=== PATIENT | male | born 1935 | race Caucasian/White ===

== ENCOUNTER 2017-02-09 12:54 | Inpatient (IN) | payer MEDICARE, OTHER ==
[2017-02-09 14:17] LABS: BASO # 0.2 K/uL (0.0-0.2); BASO % 0.3 % (0.0-2.0); EOS # 0.2 K/uL (0.0-0.7); EOS % 0.2 % (0.0-4.0); HEMATOCRIT 18.4 % (35.0-51.0); LYMPH % 7.7 % (20.0-40.0); MEAN CELL VOLUME 101.7 fL (80.0-94.0); MEAN CORPUSCULAR HGB CONC 31.5 g/dL (33.0-37.0); MEAN PLATELET VOLUME 10.9 fL (7.2-11.7); MONO # 20.1 K/uL (0.0-0.8); MONO % 30.7 % (0.0-10.0); NRBC % 0.3 % (0.0-2.0); RED CELL DISTRIBUTION WIDTH 18.2 % (11.5-14.5)
[2017-02-09 14:30] LABS: PLATELET COUNT 42 K/uL (130-400); WHITE BLOOD COUNT 65.4 K/uL (4.8-10.8)
[2017-02-09 14:32] LABS: POTASSIUM 4.6 mmol/L (3.6-5.2)
--- NOTE | 2017-02-09 14:34 | C.PDOC ---
History Of Present Illness 82 y/o male presents to ED sent by PMD for evaluation of severe Anemia and Renal failure. As per family patient was seen at PMD office on Thursday with complaints of weakness. As per family weakness has been intermittent for 1 month but worsen while on their vacation to [place]. Patient also reports new onset SOB worse when walking and no bowel movement for 1 day. Patient denies chest pain, fever, chills, n/v/d, abdominal pain, loss of appetite or any other complaints at this time. Time Seen by Provider: 02/09/17 13:35 Chief Complaint (Nursing): Weakness/Neurological Deficit History Per: Patient, Family History/Exam Limitations: language barrier Onset/Duration Of Symptoms: Days Current Symptoms Are (Timing): Still Present Past Medical History Reviewed: Historical Data, Nursing Documentation, Vital Signs Vital Signs: Last Vital Signs Temp 98.1 F 02/09/17 13:06 Pulse 79 02/09/17 13:06 Resp 20 02/09/17 14:00 BP 134/68 02/09/17 13:06 Pulse Ox 100 02/09/17 15:24 - Medical History PMH: HTN Family History: States: No Known Family Hx - Social History Hx Alcohol Use: No Hx Substance Use: No - Immunization History Hx Influenza Vaccination: Yes Hx Pneumococcal Vaccination: No Review Of Systems Except As Marked, All Systems Reviewed And Found Negative. Constitutional: Negative for: Fever, Chills Cardiovascular: Negative for: Chest Pain Respiratory: Positive for: Shortness of Breath Gastrointestinal: Negative for: Nausea, Vomiting, Abdominal Pain, Diarrhea Neurological: Positive for: Weakness Physical Exam - Physical Exam Appears: No Acute Distress Skin: Warm, Pale Head: Atraumatic, Normacephalic Eye(s): bilateral: EOMI, Conjunctiva Pale Oral Mucosa: Moist Throat: Normal, No Erythema Gastrointestinal/Abdominal: Soft, No Tenderness, No Guarding, No Rebound Extremity: Normal ROM, Capillary Refill (<2 seconds) Neurological/Psych: Oriented x3, Normal Speech ED Course And Treatment - Laboratory Results Result Diagrams: 02/09/17 14:03 02/09/17 14:03 O2 Sat by Pulse Oximetry: 100 (RA) Pulse Ox Interpretation: Normal Disposition Discussed With : Layla Mosley Doctor Will See Patient In The: Hospital Counseled Patient/Family Regarding: Studies Performed - Disposition Disposition: HOSPITALIZED Disposition Time: 14:33 Condition: GUARDED Forms: [facility] (Djiboutian) - Clinical Impression Clinical Impression: Leukocytosis, Anemia - Scribe Statement The provider has reviewed the documentation as recorded by the Martha Davis All medical record entries made by the Simiibe were at my direction and personally dictated by me. I have reviewed the chart and agree that the record accurately reflects my personal performance of the history, physical exam, medical decision making, and the department course for this patient. I have also personally directed, reviewed, and agree with the discharge instructions and disposition. Decision To Admit - Pt Status Changed To: Hospital Disposition Of: Inpatient - Admit Certification Admit to Inpatient:: After my assessment, the patient will require hospitalization for at least two midnights. This is because of the severity of symptoms shown, intensity of services needed, and/or the medical risk in this patient being treated as an outpatient. - InPatient: Physician Admission Certification: I certify that this patient requires 2 or more midnights of care for the following reason:: patient with elevated WBC, - . Bed Request Type: Telemetry Patient Diagnosis: Leukocytosis, Anemia
[2017-02-09 14:35] LABS: ALB/GLOB RATIO 1.2 (1.0-2.1); BILIRUBIN,TOTAL 0.5 mg/dL (0.2-1.3); CALCIUM 8.9 mg/dl (8.6-10.4); TOTAL PROTEIN 7.4 g/dL (6.3-8.3)
--- NOTE | 2017-02-09 14:39 | RAD ---
HISTORY: SOB COMPARISON: None available. TECHNIQUE: Chest, one view. FINDINGS: LUNGS: No focal consolidation. Please note that chest x-ray has limited sensitivity for the detection of pulmonary masses. PLEURA: No significant pleural effusion identified. No definite pneumothorax . CARDIOVASCULAR: Cardiomegaly. Atherosclerotic calcifications. OSSEOUS STRUCTURES: Degenerative changes. VISUALIZED UPPER ABDOMEN: Unremarkable. OTHER FINDINGS: None. IMPRESSION: Cardiomegaly. Atherosclerotic calcifications.
[2017-02-09 15:44] LABS: EOSINOPHIL 2 % (0-4); METAMYELOCYTE 9 % (0-0); MYELOCYTE 5 % (0-0); NEUTROPHIL 24 % (50-75); REACTIVE LYMPHOCYTES 6 % (0-0); TOTAL CELLS COUNTED 100
[2017-02-09 15:45] LABS: PROMYELOCYTE 1 % (0-0)
[2017-02-09 15:47] LABS: SMUDGE CELLS PRESENT
--- NOTE | 2017-02-09 18:43 | CP.PCM.HP ---
History of Present Illness - History of Present Illness History of Present Illness: 82 years old male patient with past medical history of hypertension presented to the emergency department for symptomatic anemia, found to have leukocytosis and thrombocytopenia. as per his PMD. Patient's family states that patient showed to PMD at his office on Thursday with complaint of intermittent weakness since last 1 month that worsen recently. Complaint of new onset shortness of breath that increases with walking. No fever, nausea, vomiting No chest pain, abdominal pain, back pain. No shortness of breath, diaphoresis, palpitation Present on Admission - Present on Admission Any Indicators Present on Admission: No Past Patient History - Past Social History Smoking Status: Never Smoked - CARDIAC Hx Hypertension: Yes - PSYCHIATRIC Hx Substance Use: No - SURGICAL HISTORY Hx Surgeries: No - ANESTHESIA Hx Anesthesia: No Meds Allergies/Adverse Reactions: Allergies Allergy/AdvReac Type Severity Reaction Status Date / Time No Known Allergies Allergy Verified 02/28/17 10:08 Physical Exam - Constitutional Appears: Well - Head Exam Head Exam: ATRAUMATIC, NORMAL INSPECTION, NORMOCEPHALIC - Eye Exam Eye Exam: EOMI, Normal appearance, PERRL Pupil Exam: NORMAL ACCOMODATION, PERRL - ENT Exam ENT Exam: Mucous Membranes Moist, Normal Exam - Neck Exam Neck exam: Positive for: Normal Inspection - Respiratory Exam Respiratory Exam: Decreased Breath Sounds - Cardiovascular Exam Cardiovascular Exam: REGULAR RHYTHM, +S1, +S2 - GI/Abdominal Exam GI & Abdominal Exam: Diminished Bowel Sounds, Soft - Rectal Exam Rectal Exam: Deferred Results - Vital Signs Recent Vital Signs: Last Vital Signs Temp 97.8 F 02/09/17 15:53 Pulse 86 02/09/17 15:53 Resp 24 02/09/17 15:53 BP 156/59 H 02/09/17 15:53 Pulse Ox 100 02/09/17 15:53 - Labs Result Diagrams: 02/12/17 07:52 02/12/17 07:52 Labs: Laboratory Results - last 24 hr 02/09/17 02/09/17 15:11 17:13 Blood Type B POSITIVE B POSITIVE Blood Type Confirm B POSITIVE Antibody Screen Negative Negative Assessment & Plan (1) AML (acute myeloblastic leukemia) Status: Acute (2) Anemia Status: Acute (3) Leukocytosis Status: Acute (4) Thrombocytopenia Status: Acute - Assessment and Plan (Free Text) Plan: Charts labs and vitals reviewed Iron studies Rule out bone marrow pathology Dr Garcia Avmeghannox Toprol-XL Dyazide Zetia Hemato-oncologist consult Follow-up with labs
--- NOTE | 2017-02-09 21:57 | CP.PCM.CON ---
History of Present Illness - History of Present Illness History of Present Illness: 82 year old male with a history of HTN, admitted with symptomatic anemia, found to have leukocytosis and thrombocytopenia. The patient reports to progressive fatigue, dyspnea with exertion which prompted blood work to be done by his PMD and recommendation to be sent to the ER. In the ER he was found to have a WBC of 65,000 with predominant monocytosis and some immature cells noted on his smear. Hgb was 5.8 and plt was 42,000. He is currently s/p 2U PRBC and feeling better. Past medical history: HTN Past surgical history: None Family history: Grandson had Nava sarcoma Social history: Denies tobacco, alcohol, and illicit drug use. Allergies: NKA Review of systems: All remaining review of systems including HEENT, cardiovascular, respiratory, gastrointestinal, genitourinary, musculoskeletal, dermatologic, neurologic, and psychiatric are negative unless mentioned in the HPI. Past Patient History - Past Social History Smoking Status: Never Smoked - CARDIAC Hx Hypertension: Yes - MUSCULOSKELETAL/RHEUMATOLOGICAL Hx Falls: No - PSYCHIATRIC Hx Substance Use: No - SURGICAL HISTORY Hx Surgeries: No - ANESTHESIA Hx Anesthesia: No Meds Allergies/Adverse Reactions: Allergies Allergy/AdvReac Type Severity Reaction Status Date / Time No Known Allergies Allergy Verified 02/09/17 13:05 - Medications Medications: Current Medications Ezetimibe (Zetia) 10 mg PO DAILY [facility] Enoxaparin Sodium (Lovenox) 40 mg SC DAILY [facility] Moxifloxacin HCl (Avelox Iv 400mg/250ml Ns) 400 mg in 250 mls @ 167 mls/hr IVPB Q24H [facility] Metoprolol Succinate (Toprol Xl) 25 mg PO DAILY [facility] Pantoprazole Sodium (Protonix Ec Tab) 40 mg PO DAILY [facility] Triamterene/HCTZ (Dyazide 25 Mg-37.5 Mg) 1 cap PO DAILY [facility] Physical Exam - Head Exam Head Exam: ATRAUMATIC - Eye Exam Eye Exam: Normal appearance - ENT Exam ENT Exam: Mucous Membranes Dry - Respiratory Exam Respiratory Exam: NORMAL BREATHING PATTERN - Cardiovascular Exam Cardiovascular Exam: +S1, +S2 - GI/Abdominal Exam GI & Abdominal Exam: Normal Bowel Sounds - Extremities Exam Extremities exam: Positive for: normal inspection - Neurological Exam Neurological exam: Oriented x3 - Psychiatric Exam Psychiatric exam: Normal Affect, Normal Mood - Skin Skin Exam: Warm Results - Vital Signs Recent Vital Signs: Last Vital Signs Temp 98.2 F 02/09/17 20:11 Pulse 77 02/09/17 20:11 Resp 24 02/09/17 20:11 BP 126/60 02/09/17 20:11 Pulse Ox 100 02/09/17 20:11 - Labs Result Diagrams: 02/10/17 10:03 02/10/17 10:03 Labs: Laboratory Results - last 24 hr 02/09/17 02/09/17 15:11 17:13 Blood Type B POSITIVE B POSITIVE Blood Type Confirm B POSITIVE Antibody Screen Negative Negative Assessment & Plan (1) Anemia Assessment and Plan: for 2U PRBC will check ferritin, retic count, b12, folate, FOBT Status: Acute (2) Leukocytosis Assessment and Plan: concern for leukemia will perform bone marrow biopsy in AM Status: Acute (3) Thrombocytopenia Assessment and Plan: rule out bone marrow pathology no current transfusion indication Thank you for this interesting consult. Status: Acute
[2017-02-09] MEDS: Moxifloxacin IV 400mg/250ml NS 400 MG/250 ML BAG IVPB SCH (22:57)
[2017-02-10 00:38] VITALS: RESP 20
[2017-02-10] MEDS: Metoprolol Succinate 25 mg XL Tab PO SCH (09:26)
[2017-02-10] MEDS: hydroCHLOROthiazide-Triamterene 25 mg-37.5 mg Cap UD PO SCH (09:26)
[2017-02-10] MEDS: Pantoprazole 40 mg EC Tab PO SCH (09:26)
[2017-02-10] MEDS ORDERED: Enoxaparin 40 mg Syringe SC SCH (10:00)
[2017-02-10 10:13] LABS: BASO # 0.1 K/uL (0.0-0.2); BASO % 0.1 % (0.0-2.0); EOS # 0.1 K/uL (0.0-0.7); EOS % 0.2 % (0.0-4.0); HEMATOCRIT 26.8 % (35.0-51.0); LYMPH % 7.5 % (20.0-40.0); MEAN CORPUSCULAR HEMOGLOBIN 30.6 pg (27.0-31.0); MEAN CORPUSCULAR HGB CONC 31.9 g/dL (33.0-37.0); MEAN PLATELET VOLUME 9.7 fL (7.2-11.7); MONO # 12.2 K/uL (0.0-0.8); MONO % 22.8 % (0.0-10.0); NRBC % 0.4 % (0.0-2.0); PLATELET COUNT 35 K/uL (130-400)
[2017-02-10 10:14] LABS: POTASSIUM 3.9 mmol/L (3.6-5.2)
[2017-02-10 10:16] LABS: BILIRUBIN,TOTAL 0.7 mg/dL (0.2-1.3)
[2017-02-10 10:17] LABS: ALB/GLOB RATIO 1.1 (1.0-2.1); CALCIUM 8.6 mg/dl (8.6-10.4); TOTAL PROTEIN 7.3 g/dL (6.3-8.3)
[2017-02-10 10:19] LABS: MEAN CELL VOLUME 96.1 fL (80.0-94.0); WHITE BLOOD COUNT 53.6 K/uL (4.8-10.8)
[2017-02-10] MEDS ORDERED: Lidocaine 2% Inj (20ml) IJ ONE (10:40)
[2017-02-10 10:58] LABS: METAMYELOCYTE 4 % (0-0); MYELOCYTE 5 % (0-0); NEUTROPHIL 29 % (50-75); REACTIVE LYMPHOCYTES 20 % (0-0); TOTAL CELLS COUNTED 100
[2017-02-10 11:03] LABS: SPHEROCYTES SLIGHT
--- NOTE | 2017-02-10 12:37 | CP.PCM.PN ---
Subjective - Date & Time of Evaluation Date of Evaluation: 02/10/17 Time of Evaluation: 12:00 - Subjective Subjective: Bone marrow aspiration and biopsy procedure Indication: Luekocytosis, anemia, thrombocytopenia; Rule out Leukemia - Time-out was called to confirm: patients name and date of , procedure, side and site of biopsy, safety procedures followed. - Performed by: katrina and Landon Pang D.O. - Informed consent: signed by patient. - Aspiration and biopsy site: [right] superior posterior iliac crest. - Patient position: [left lateral decubitus] - Preparation and technique: sterile preparation of site with Betadyne, Chloraprep, draped to expose aspirate/biopsy area, local anesthesia with 2% lidocaine (approximately 10ml), frequent pressure application on incision to maintain hemostasis. - Tissue obtained: bone marrow aspirate and biopsy were successfully obtained in sterile manner. - Toleration of procedure and any complications: slight localized bleeding (<1ml ). Patient tolerated procedure well with minimal pain. Objective - Vital Signs/Intake and Output Vital Signs (last 24 hours): Temp Pulse Resp BP Pulse Ox 98.4 F 70 20 134/76 98 02/10/17 07:43 02/10/17 07:43 02/10/17 07:43 02/10/17 07:43 02/10/17 07:43 Intake and Output: 02/10/17 02/10/17 06:59 18:59 Intake Total 1625 Output Total 200 Balance 1425 - Medications Medications: Current Medications Ezetimibe (Zetia) 10 mg PO DAILY [facility] Last Admin: 02/10/17 09:26 Dose: 10 mg Moxifloxacin HCl (Avelox Iv 400mg/250ml Ns) 400 mg in 250 mls @ 167 mls/hr IVPB Q24H [facility] Last Admin: 02/09/17 22:57 Dose: 167 mls/hr Metoprolol Succinate (Toprol Xl) 25 mg PO DAILY [facility] Last Admin: 02/10/17 09:26 Dose: 25 mg Pantoprazole Sodium (Protonix Ec Tab) 40 mg PO DAILY [facility] Last Admin: 02/10/17 09:26 Dose: 40 mg Triamterene/HCTZ (Dyazide 25 Mg-37.5 Mg) 1 cap PO DAILY [facility] Last Admin: 02/10/17 09:26 Dose: 1 cap - Labs Labs: 02/10/17 10:03 02/10/17 10:03 - Head Exam Head Exam: ATRAUMATIC - Eye Exam Eye Exam: Normal appearance - ENT Exam ENT Exam: Mucous Membranes Dry - Respiratory Exam Respiratory Exam: NORMAL BREATHING PATTERN - Cardiovascular Exam Cardiovascular Exam: +S1, +S2 - GI/Abdominal Exam GI & Abdominal Exam: Normal Bowel Sounds - Extremities Exam Extremities Exam: Pedal Edema Assessment and Plan (1) Leukocytosis Status: Acute (2) Thrombocytopenia Status: Acute (3) Anemia Status: Acute
--- NOTE | 2017-02-10 16:53 | CP.PCM.PN ---
Subjective - Date & Time of Evaluation Date of Evaluation: 02/10/17 Time of Evaluation: 09:40 - Subjective Subjective: clinically same Objective - Vital Signs/Intake and Output Vital Signs (last 24 hours): Temp Pulse Resp BP Pulse Ox 98.4 F 70 20 134/76 98 02/10/17 07:43 02/10/17 07:43 02/10/17 07:43 02/10/17 07:43 02/10/17 07:43 Intake and Output: 02/10/17 02/10/17 06:59 18:59 Intake Total 1625 300 Output Total 200 Balance 1425 300 - Medications Medications: Current Medications Ezetimibe (Zetia) 10 mg PO DAILY [facility] Last Admin: 02/10/17 09:26 Dose: 10 mg Moxifloxacin HCl (Avelox Iv 400mg/250ml Ns) 400 mg in 250 mls @ 167 mls/hr IVPB Q24H [facility] Last Admin: 02/09/17 22:57 Dose: 167 mls/hr Metoprolol Succinate (Toprol Xl) 25 mg PO DAILY [facility] Last Admin: 02/10/17 09:26 Dose: 25 mg Pantoprazole Sodium (Protonix Ec Tab) 40 mg PO DAILY [facility] Last Admin: 02/10/17 09:26 Dose: 40 mg Triamterene/HCTZ (Dyazide 25 Mg-37.5 Mg) 1 cap PO DAILY [facility] Last Admin: 02/10/17 09:26 Dose: 1 cap - Labs Labs: 02/10/17 10:03 02/10/17 10:03 - Constitutional Appears: Well - Head Exam Head Exam: ATRAUMATIC, NORMAL INSPECTION, NORMOCEPHALIC - Eye Exam Eye Exam: EOMI, Normal appearance, PERRL Pupil Exam: NORMAL ACCOMODATION, PERRL - ENT Exam ENT Exam: Mucous Membranes Moist, Normal Exam - Neck Exam Neck Exam: Full ROM, Normal Inspection. absent: Lymphadenopathy - Respiratory Exam Respiratory Exam: Decreased Breath Sounds - Cardiovascular Exam Cardiovascular Exam: REGULAR RHYTHM, +S1, +S2 - GI/Abdominal Exam GI & Abdominal Exam: Soft, Diminished Bowel Sounds - Rectal Exam Rectal Exam: Deferred Assessment and Plan (1) AML (acute myeloblastic leukemia) Status: Acute (2) Anemia Status: Acute (3) Leukocytosis Status: Acute (4) Thrombocytopenia Status: Acute - Assessment and Plan (Free Text) Plan: Patient with a very high WBC almost to 60,000 and W report hemoglobin which was 5.8 now has gone up to 8.[address] Weber who is going to do the bone marrow biopsy Family bedside discussed about the does and don'ts of the diagnoses family made aware
[2017-02-10] MEDS: Moxifloxacin IV 400mg/250ml NS 400 MG/250 ML BAG IVPB SCH (21:33)
[2017-02-11 07:13] LABS: BASO # 0.1 K/uL (0.0-0.2); BASO % 0.2 % (0.0-2.0); EOS # 0.1 K/uL (0.0-0.7); EOS % 0.2 % (0.0-4.0); LYMPH # 4.3 K/uL (1.0-4.3); LYMPH % 7.5 % (20.0-40.0); MEAN CELL VOLUME 94.7 fL (80.0-94.0); MEAN CORPUSCULAR HEMOGLOBIN 30.9 pg (27.0-31.0); MEAN CORPUSCULAR HGB CONC 32.6 g/dL (33.0-37.0); MEAN PLATELET VOLUME 9.7 fL (7.2-11.7); MONO # 16.9 K/uL (0.0-0.8); MONO % 29.4 % (0.0-10.0); NRBC % 0.2 % (0.0-2.0); PLATELET COUNT 38 K/uL (130-400); RED CELL DISTRIBUTION WIDTH 19.8 % (11.5-14.5)
[2017-02-11 07:33] LABS: WHITE BLOOD COUNT 57.3 K/uL (4.8-10.8)
[2017-02-11 07:53] LABS: CHLORIDE 102 mmol/L (98-107)
[2017-02-11 07:54] LABS: SODIUM 141 mmol/L (132-148)
[2017-02-11 07:56] LABS: ALB/GLOB RATIO 1.1 (1.0-2.1); ALKALINE PHOSPHATASE 56 U/L (38-126); ALT/SGPT 24 U/L (21-72); AST/SGOT 26 U/L (17-59); BILIRUBIN,TOTAL 0.6 mg/dL (0.2-1.3); BLOOD UREA NITROGEN 37 mg/dL (9-20); CARBON DIOXIDE 23 mmol/L (22-30); GFR AFRICAN-AMERICAN 35; TOTAL PROTEIN 6.5 g/dL (6.3-8.3)
[2017-02-11 07:57] LABS: CALCIUM 8.2 mg/dl (8.6-10.4); GLUCOSE,RANDOM 88 mg/dL (75-110)
[2017-02-11 08:53] LABS: BLASTS 11 % (0-0); METAMYELOCYTE 5 % (0-0); MYELOCYTE 4 % (0-0); NEUTROPHIL 24 % (50-75); NUCLEATED RED BLOOD CELL 1 % (0-0); PROMYELOCYTE 5 % (0-0); REACTIVE LYMPHOCYTES 1 % (0-0); TOTAL CELLS COUNTED 100
[2017-02-11 10:57] LABS: RETIC% 0.7 % (0.5-1.5)
--- NOTE | 2017-02-11 11:03 | CP.PCM.PN ---
Subjective - Date & Time of Evaluation Date of Evaluation: 02/11/17 Time of Evaluation: 09:20 - Subjective Subjective: clinically same Objective - Vital Signs/Intake and Output Vital Signs (last 24 hours): Temp Pulse Resp BP Pulse Ox 98.0 F 71 20 115/63 97 02/11/17 08:00 02/11/17 08:00 02/11/17 08:00 02/11/17 08:00 02/11/17 08:00 Intake and Output: 02/11/17 02/11/17 06:59 18:59 Intake Total 590 Balance 590 - Medications Medications: Current Medications Ezetimibe (Zetia) 10 mg PO DAILY [facility] Last Admin: 02/10/17 09:26 Dose: 10 mg Moxifloxacin HCl (Avelox Iv 400mg/250ml Ns) 400 mg in 250 mls @ 167 mls/hr IVPB Q24H [facility] Last Admin: 02/10/17 21:33 Dose: 167 mls/hr Metoprolol Succinate (Toprol Xl) 25 mg PO DAILY [facility] Last Admin: 02/10/17 09:26 Dose: 25 mg Pantoprazole Sodium (Protonix Ec Tab) 40 mg PO DAILY [facility] Last Admin: 02/10/17 09:26 Dose: 40 mg Triamterene/HCTZ (Dyazide 25 Mg-37.5 Mg) 1 cap PO DAILY [facility] Last Admin: 02/10/17 09:26 Dose: 1 cap - Labs Labs: 02/11/17 06:59 02/11/17 06:59 - Constitutional Appears: Well - Head Exam Head Exam: ATRAUMATIC, NORMAL INSPECTION, NORMOCEPHALIC - Eye Exam Eye Exam: EOMI, Normal appearance, PERRL Pupil Exam: NORMAL ACCOMODATION, PERRL - ENT Exam ENT Exam: Mucous Membranes Moist, Normal Exam - Neck Exam Neck Exam: Full ROM, Normal Inspection. absent: Lymphadenopathy - Respiratory Exam Respiratory Exam: Decreased Breath Sounds - Cardiovascular Exam Cardiovascular Exam: REGULAR RHYTHM, +S1, +S2 - GI/Abdominal Exam GI & Abdominal Exam: Soft, Diminished Bowel Sounds - Rectal Exam Rectal Exam: Deferred Assessment and Plan (1) Anemia Status: Acute (2) Leukocytosis Status: Acute (3) Thrombocytopenia Status: Acute - Assessment and Plan (Free Text) Plan: Case seen and discussed with the staff patient had bone marrow biopsy yesterday reports pending status post units of transfusion hemoglobin went up to 8.6 WBC today is 57 continue following up with the bone marrow report bone marrow is still pending follow-up with the consultations
[2017-02-11] MEDS: Metoprolol Succinate 25 mg XL Tab PO SCH (11:04)
[2017-02-11] MEDS: hydroCHLOROthiazide-Triamterene 25 mg-37.5 mg Cap UD PO SCH (11:04)
[2017-02-11] MEDS: Pantoprazole 40 mg EC Tab PO SCH (11:05)
--- NOTE | 2017-02-11 11:47 | CP.PCM.PN ---
<Landon Pang - Last Filed: 02/11/17 11:42> Subjective - Date & Time of Evaluation Date of Evaluation: 02/11/17 Time of Evaluation: 10:00 - Subjective Subjective: PGY3 on heme/onc Dr. Garcia service: Pt seen and examined at bedside this morning. S/P bone marrow biopsy POD#1 and 2U pRBC transfusion. No complaints at the moment. Objective - Vital Signs/Intake and Output Vital Signs (last 24 hours): Temp Pulse Resp BP Pulse Ox 98.0 F 71 20 115/63 97 02/11/17 08:00 02/11/17 08:00 02/11/17 08:00 02/11/17 08:00 02/11/17 08:00 Intake and Output: 02/11/17 02/11/17 06:59 18:59 Intake Total 590 Balance 590 - Medications Medications: Current Medications Ezetimibe (Zetia) 10 mg PO DAILY [facility] Last Admin: 02/11/17 11:19 Dose: 10 mg Moxifloxacin HCl (Avelox Iv 400mg/250ml Ns) 400 mg in 250 mls @ 167 mls/hr IVPB Q24H [facility] Last Admin: 02/10/17 21:33 Dose: 167 mls/hr Metoprolol Succinate (Toprol Xl) 25 mg PO DAILY [facility] Last Admin: 02/11/17 11:04 Dose: 25 mg Pantoprazole Sodium (Protonix Ec Tab) 40 mg PO DAILY [facility] Last Admin: 02/11/17 11:05 Dose: 40 mg Triamterene/HCTZ (Dyazide 25 Mg-37.5 Mg) 1 cap PO DAILY [facility] Last Admin: 02/11/17 11:04 Dose: 1 cap - Labs Labs: 02/11/17 06:59 02/11/17 06:59 - Constitutional Appears: Non-toxic, No Acute Distress - Head Exam Head Exam: ATRAUMATIC, NORMAL INSPECTION, NORMOCEPHALIC - ENT Exam ENT Exam: Mucous Membranes Moist - Respiratory Exam Respiratory Exam: Clear to Ausculation Bilateral, NORMAL BREATHING PATTERN - Cardiovascular Exam Cardiovascular Exam: REGULAR RHYTHM, +S1, +S2. absent: Gallop, Rubs - GI/Abdominal Exam GI & Abdominal Exam: Soft, Normal Bowel Sounds - Neurological Exam Neurological Exam: Alert, Awake, Oriented x3 - Psychiatric Exam Psychiatric exam: Normal Mood Assessment and Plan - Assessment and Plan (Free Text) Assessment: (1) Anemia Assessment and Plan: S/P 2U PRBC transfusion Ret index 0.28 Pending other anemia workup Status: Acute (2) Leukocytosis Assessment and Plan: S/P bone marrow biopsy F/U results Status: Acute (3) Thrombocytopenia Assessment and Plan: rule out bone marrow pathology no current transfusion indication Status: Acute <Zeferino Garcia - Last Filed: 02/12/17 17:10> Objective - Vital Signs/Intake and Output Vital Signs (last 24 hours): Temp Pulse Resp BP Pulse Ox 97.9 F 72 20 116/68 98 02/12/17 16:00 02/12/17 16:00 02/12/17 16:00 02/12/17 16:00 02/12/17 16:00 Intake and Output: 02/12/17 02/12/17 06:59 18:59 Intake Total 490 Balance 490 - Medications Medications: Current Medications Ezetimibe (Zetia) 10 mg PO DAILY [facility] Last Admin: 02/12/17 09:34 Dose: 10 mg Moxifloxacin HCl (Avelox Iv 400mg/250ml Ns) 400 mg in 250 mls @ 167 mls/hr IVPB Q24H [facility] Last Admin: 02/11/17 21:22 Dose: 167 mls/hr Metoprolol Succinate (Toprol Xl) 25 mg PO DAILY [facility] Last Admin: 02/12/17 09:34 Dose: 25 mg Pantoprazole Sodium (Protonix Ec Tab) 40 mg PO DAILY [facility] Last Admin: 02/12/17 09:34 Dose: 40 mg Triamterene/HCTZ (Dyazide 25 Mg-37.5 Mg) 1 cap PO DAILY [facility] Last Admin: 02/12/17 09:34 Dose: 1 cap - Labs Labs: 02/12/17 07:52 02/12/17 07:52 Assessment and Plan (1) Anemia Status: Acute (2) Leukocytosis Status: Acute (3) Thrombocytopenia Status: Acute - Assessment and Plan (Free Text) Assessment: Pt seen and examined, agree with residents note. S/p bone marrow biopsy; awaiting path report. Concern for acute leukemia.
[2017-02-11 12:05] LABS: FOLATE > 20.0 ng/mL
[2017-02-11] MEDS: Moxifloxacin IV 400mg/250ml NS 400 MG/250 ML BAG IVPB SCH (21:22)
[2017-02-12 08:03] LABS: BASO # 0.1 K/uL (0.0-0.2); BASO % 0.1 % (0.0-2.0); EOS # 0.1 K/uL (0.0-0.7); EOS % 0.1 % (0.0-4.0); HEMATOCRIT 27.9 % (35.0-51.0); LYMPH # 5.9 K/uL (1.0-4.3); LYMPH % 8.3 % (20.0-40.0); MEAN CORPUSCULAR HEMOGLOBIN 30.8 pg (27.0-31.0); MEAN CORPUSCULAR HGB CONC 31.9 g/dL (33.0-37.0); MEAN PLATELET VOLUME 9.9 fL (7.2-11.7); MONO % 29.3 % (0.0-10.0); NRBC % 0.1 % (0.0-2.0); PLATELET COUNT 40 K/uL (130-400); RED CELL DISTRIBUTION WIDTH 20.2 % (11.5-14.5)
[2017-02-12 08:06] LABS: POTASSIUM 3.6 mmol/L (3.6-5.2)
[2017-02-12 08:09] LABS: ALB/GLOB RATIO 1.1 (1.0-2.1); BILIRUBIN,TOTAL 0.6 mg/dL (0.2-1.3); CALCIUM 8.4 mg/dl (8.6-10.4); MEAN CELL VOLUME 96.7 fL (80.0-94.0); TOTAL PROTEIN 7.5 g/dL (6.3-8.3); WHITE BLOOD COUNT 71.7 K/uL (4.8-10.8)
[2017-02-12] MEDS: Pantoprazole 40 mg EC Tab PO SCH (09:34)
[2017-02-12] MEDS: Metoprolol Succinate 25 mg XL Tab PO SCH (09:34)
[2017-02-12] MEDS: hydroCHLOROthiazide-Triamterene 25 mg-37.5 mg Cap UD PO SCH (09:34)
[2017-02-12 09:54] LABS: BLASTS 11 % (0-0); METAMYELOCYTE 4 % (0-0); MYELOCYTE 5 % (0-0); NEUTROPHIL 27 % (50-75); PROMYELOCYTE 3 % (0-0); REACTIVE LYMPHOCYTES 1 % (0-0); TOTAL CELLS COUNTED 100
--- NOTE | 2017-02-12 15:18 | CP.PCM.PN ---
Subjective - Date & Time of Evaluation Date of Evaluation: 02/12/17 Time of Evaluation: 09:00 - Subjective Subjective: clinically same Objective - Vital Signs/Intake and Output Vital Signs (last 24 hours): Temp Pulse Resp BP Pulse Ox 98.2 F 71 20 127/74 99 02/12/17 08:17 02/12/17 08:17 02/12/17 08:17 02/12/17 08:17 02/12/17 08:17 Intake and Output: 02/12/17 02/12/17 06:59 18:59 Intake Total 490 Balance 490 - Medications Medications: Current Medications Ezetimibe (Zetia) 10 mg PO DAILY [facility] Last Admin: 02/12/17 09:34 Dose: 10 mg Moxifloxacin HCl (Avelox Iv 400mg/250ml Ns) 400 mg in 250 mls @ 167 mls/hr IVPB Q24H [facility] Last Admin: 02/11/17 21:22 Dose: 167 mls/hr Metoprolol Succinate (Toprol Xl) 25 mg PO DAILY [facility] Last Admin: 02/12/17 09:34 Dose: 25 mg Pantoprazole Sodium (Protonix Ec Tab) 40 mg PO DAILY [facility] Last Admin: 02/12/17 09:34 Dose: 40 mg Triamterene/HCTZ (Dyazide 25 Mg-37.5 Mg) 1 cap PO DAILY [facility] Last Admin: 02/12/17 09:34 Dose: 1 cap - Labs Labs: 02/12/17 07:52 02/12/17 07:52 - Constitutional Appears: Well - Head Exam Head Exam: ATRAUMATIC, NORMAL INSPECTION, NORMOCEPHALIC - Eye Exam Eye Exam: EOMI, Normal appearance, PERRL Pupil Exam: NORMAL ACCOMODATION, PERRL - ENT Exam ENT Exam: Mucous Membranes Moist, Normal Exam - Neck Exam Neck Exam: Full ROM, Normal Inspection. absent: Lymphadenopathy - Respiratory Exam Respiratory Exam: Decreased Breath Sounds - Cardiovascular Exam Cardiovascular Exam: REGULAR RHYTHM, +S1, +S2 - GI/Abdominal Exam GI & Abdominal Exam: Soft, Diminished Bowel Sounds - Rectal Exam Rectal Exam: Deferred Assessment and Plan (1) Anemia Status: Acute (2) Leukocytosis Status: Acute (3) Thrombocytopenia Status: Acute - Assessment and Plan (Free Text) Plan: Patient clinically stable No acute event overnight Labs and meds noted Discharge today Continue home meds Follow-up in office as outpatient in 2 days Follow-up with Dr. Garcia Return to ED if symptom recurs
[2017-02-12 16:18] VITALS: BP 116/68; PULSE 72; TEMP 97.9; O2SAT 98
--- NOTE | 2017-02-12 17:12 | CP.PCM.PN ---
Subjective - Date & Time of Evaluation Date of Evaluation: 02/12/17 Time of Evaluation: 17:08 - Subjective Subjective: PT SEEN AND EXAMINED BY DR Tito FAUST TODAY. PT DENIES ANY CP, SOB, RESP EASY AND UNLABORED. NAD Objective - Vital Signs/Intake and Output Vital Signs (last 24 hours): Temp Pulse Resp BP Pulse Ox 97.9 F 72 20 116/68 98 02/12/17 16:00 02/12/17 16:00 02/12/17 16:00 02/12/17 16:00 02/12/17 16:00 Intake and Output: 02/12/17 02/12/17 06:59 18:59 Intake Total 490 Balance 490 - Medications Medications: Current Medications Ezetimibe (Zetia) 10 mg PO DAILY [facility] Last Admin: 02/12/17 09:34 Dose: 10 mg Moxifloxacin HCl (Avelox Iv 400mg/250ml Ns) 400 mg in 250 mls @ 167 mls/hr IVPB Q24H [facility] Last Admin: 02/11/17 21:22 Dose: 167 mls/hr Metoprolol Succinate (Toprol Xl) 25 mg PO DAILY [facility] Last Admin: 02/12/17 09:34 Dose: 25 mg Pantoprazole Sodium (Protonix Ec Tab) 40 mg PO DAILY [facility] Last Admin: 02/12/17 09:34 Dose: 40 mg Triamterene/HCTZ (Dyazide 25 Mg-37.5 Mg) 1 cap PO DAILY [facility] Last Admin: 02/12/17 09:34 Dose: 1 cap - Labs Labs: 02/12/17 07:52 02/12/17 07:52 Assessment and Plan - Assessment and Plan (Free Text) Plan: 82 Y/O MALE ADMITTED FOR GENERALIZED WEAKNESS, ANEMIA, THROMBOCYTOPENIA, 2 UNITS PRBC, BONE MARROW BIOPSY BY DR EASON, AWAITING FOR FINAL RESULTS FOR BONE MARROW BIOSPY, PT CLEARED FOR D/C PER DR Tito FAUST AND DR EASON, FOLLOW UP WITH DR EASON, DR FAUST, SECOND OPINION AT [facility], RETURN TO ED IF ANY WORSENING S /S, PT AND FAMILY AGREE W/POC, VERBALIZE UNDERSTANDING.
--- NOTE | 2017-02-12 18:06 | CP.PCM.PN ---
Subjective - Date & Time of Evaluation Date of Evaluation: 02/12/17 Time of Evaluation: 15:00 - Subjective Subjective: No complaints. 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 Objective - Vital Signs/Intake and Output Vital Signs (last 24 hours): Temp Pulse Resp BP Pulse Ox 97.9 F 72 20 116/68 98 02/12/17 16:00 02/12/17 16:00 02/12/17 16:00 02/12/17 16:00 02/12/17 16:00 Intake and Output: 02/12/17 02/12/17 06:59 18:59 Intake Total 490 Balance 490 - Medications Medications: Current Medications Ezetimibe (Zetia) 10 mg PO DAILY [facility] Last Admin: 02/12/17 09:34 Dose: 10 mg Moxifloxacin HCl (Avelox Iv 400mg/250ml Ns) 400 mg in 250 mls @ 167 mls/hr IVPB Q24H [facility] Last Admin: 02/11/17 21:22 Dose: 167 mls/hr Metoprolol Succinate (Toprol Xl) 25 mg PO DAILY [facility] Last Admin: 02/12/17 09:34 Dose: 25 mg Pantoprazole Sodium (Protonix Ec Tab) 40 mg PO DAILY [facility] Last Admin: 02/12/17 09:34 Dose: 40 mg Triamterene/HCTZ (Dyazide 25 Mg-37.5 Mg) 1 cap PO DAILY [facility] Last Admin: 02/12/17 09:34 Dose: 1 cap - Labs Labs: 02/12/17 07:52 02/12/17 07:52 - Head Exam Head Exam: ATRAUMATIC - Eye Exam Eye Exam: Normal appearance - ENT Exam ENT Exam: Mucous Membranes Dry - Respiratory Exam Respiratory Exam: NORMAL BREATHING PATTERN - Cardiovascular Exam Cardiovascular Exam: +S1, +S2 - GI/Abdominal Exam GI & Abdominal Exam: Normal Bowel Sounds - Extremities Exam Extremities Exam: Normal Inspection Assessment and Plan (1) Anemia Assessment & Plan: likely secondary to AML transfusion support Status: Acute (2) Leukocytosis Assessment & Plan: likely AML f/u offical path report as outpatient Status: Acute (3) Thrombocytopenia Assessment & Plan: likely secondary to AML no transfusion indication Status: Acute
== END 2017-02-12 18:17 | disposition home or self-care (01) | DRG 842 ==
LOC: C.ER 12:54 → C.9E 14:44 → C.3T 19:42
PROVIDERS: ADMIT Internal Medicine Nephrology; ATTEND Internal Medicine Nephrology
PROC: 30233N1 Transfusion of Nonautologous Red Blood Cells into Peripheral Vein, Percutaneous Approach (ICD-10-PCS; 2017-02-09)
PROC: 07DR3ZX Extraction of Iliac Bone Marrow, Percutaneous Approach, Diagnostic (ICD-10-PCS; principal; 2017-02-10)
DX: C92.Z0 Other myeloid leukemia not having achieved remission (principal); D69.6 Thrombocytopenia, unspecified; D64.9 Anemia, unspecified; I10 Essential (primary) hypertension

== ENCOUNTER 2017-02-28 09:58 | Observation (INO) | payer MEDICARE, OTHER ==
[2017-02-28 11:02] LABS: BASO # 0.2 K/uL (0.0-0.2); BASO % 0.2 % (0.0-2.0); EOS # 0.4 K/uL (0.0-0.7); EOS % 0.5 % (0.0-4.0); HEMATOCRIT 23.4 % (35.0-51.0); LYMPH # 6.4 K/uL (1.0-4.3); LYMPH % 8.4 % (20.0-40.0); MEAN CELL VOLUME 96.2 fL (80.0-94.0); MEAN CORPUSCULAR HEMOGLOBIN 29.3 pg (27.0-31.0); MEAN CORPUSCULAR HGB CONC 30.5 g/dL (33.0-37.0); MEAN PLATELET VOLUME 10.6 fL (7.2-11.7); MONO # 25.9 K/uL (0.0-0.8); MONO % 34.1 % (0.0-10.0); PLATELET COUNT 45 K/uL (130-400); RED CELL DISTRIBUTION WIDTH 20.2 % (11.5-14.5)
--- NOTE | 2017-02-28 11:04 | C.PDOC ---
History Of Present Illness 82 year old male with a history of anemia and leukemia presents to the ED with complaints of generalized weakness for approximately 3-4 days. Patient recently had a blood transfusion performed two and a half weeks ago. He was evaluated by PMD six days ago on Thursday and upon re-evaluation today had a hemoglobin of 7.8. Patient was referred to ED for further evaluation. He denies hematuria, melena, fever, nausea, vomiting, shortness of breath, or dizziness. Time Seen by Provider: 02/28/17 10:08 Chief Complaint (Nursing): Abnormal Labs History Per: Patient History/Exam Limitations: no limitations Onset/Duration Of Symptoms: Days (3-4 days ) Current Symptoms Are (Timing): Still Present Reports Recently: Treated By A Physician Recent travel outside of the [place]: No Additional History Per: Prior Records Past Medical History Reviewed: Historical Data, Nursing Documentation, Vital Signs Vital Signs: Last Vital Signs Temp 98.1 F 02/28/17 16:03 Pulse 87 02/28/17 16:03 Resp 18 02/28/17 16:03 BP 114/63 02/28/17 16:03 Pulse Ox 100 02/28/17 14:48 - Medical History PMH: Arthritis (L KNEE/L ANKLE/FOOT), HTN, Hypercholesterolemia - [facility] Procedures EXTRACTION OF ILIAC BONE MARROW, PERC APPROACH, DIAGN (02/09/17) TRANSFUSE NONAUT RED BLOOD CELLS IN PERIPH VEIN, PERC (02/09/17) Family History: States: Unknown Family Hx - Social History Hx Alcohol Use: No Hx Substance Use: No - Immunization History Hx Influenza Vaccination: Yes Hx Pneumococcal Vaccination: No Review Of Systems Constitutional: Positive for: Weakness. Negative for: Fever, Chills Cardiovascular: Negative for: Chest Pain, Palpitations Respiratory: Negative for: Cough, Shortness of Breath Gastrointestinal: Negative for: Nausea, Vomiting, Abdominal Pain, Diarrhea Neurological: Negative for: Dizziness Physical Exam - Physical Exam Appears: Non-toxic, No Acute Distress, Chronically Ill Skin: Warm, Dry, Pale Head: Atraumatic, Normacephalic Eye(s): bilateral: EOMI, Conjunctiva Pale Nose: Normal Oral Mucosa: Moist Neck: Normal ROM, Supple Chest: Symmetrical, No Deformity Cardiovascular: Rhythm Regular, No Murmur Respiratory: Normal Breath Sounds, No Rales, No Rhonchi, No Stridor, No Wheezing Gastrointestinal/Abdominal: Soft, No Tenderness, No Distention, No Guarding, No Rebound Extremity: No Pedal Edema, No Calf Tenderness, Capillary Refill (good capillary refill, less than two seconds ), No Deformity, No Swelling Neurological/Psych: Oriented x3, Normal Speech, Normal Cognition, Normal Motor, Normal Sensation ED Course And Treatment - Laboratory Results Result Diagrams: 02/28/17 10:45 02/28/17 10:45 O2 Sat by Pulse Oximetry: 97 (room air ) Progress Note: CAse discussed and pt admitted to Dr. Mosley. - Physician Consult Information Time Consulting Physician Contacted: 11:51 Physician Contacted: Zeferino Garcia Outcome Of Conversation: Dr. Garcia did not answer call. Disposition - Disposition Disposition: HOSPITALIZED Disposition Time: 10:00 Condition: STABLE - Clinical Impression Clinical Impression: Leukocytosis, Anemia - Scribe Statement The provider has reviewed the documentation as recorded by the Scribe Erica Becker All medical record entries made by the Simiibe were at my direction and personally dictated by me. I have reviewed the chart and agree that the record accurately reflects my personal performance of the history, physical exam, medical decision making, and the department course for this patient. I have also personally directed, reviewed, and agree with the discharge instructions and disposition.
[2017-02-28 11:05] LABS: POTASSIUM 4.6 mmol/L (3.6-5.2)
[2017-02-28 11:08] LABS: ALB/GLOB RATIO 1.2 (1.0-2.1); BILIRUBIN,TOTAL 0.7 mg/dL (0.2-1.3); TOTAL PROTEIN 7.7 g/dL (6.3-8.3)
[2017-02-28 11:09] LABS: CALCIUM 9.3 mg/dl (8.6-10.4)
[2017-02-28 11:38] LABS: BASOPHIL 1 % (0-2); BLASTS 4 % (0-0); METAMYELOCYTE 2 % (0-0); MYELOCYTE 5 % (0-0); TOTAL CELLS COUNTED 100
[2017-02-28 11:41] LABS: NEUTROPHIL 32 % (50-75); PROMYELOCYTE 3 % (0-0); SPHEROCYTES SLIGHT
--- NOTE | 2017-02-28 14:41 | CP.PCM.HP ---
Past Patient History - Past Medical History & Family History Past Medical History?: Yes - Past Social History Smoking Status: Never Smoked - CARDIAC Hx Hypercholesterolemia: Yes Hx Hypertension: Yes - PULMONARY Hx Respiratory Disorders: No - NEUROLOGICAL Hx Neurological Disorder: No - HEENT Hx HEENT Problems: No - RENAL Hx Chronic Kidney Disease: No - ENDOCRINE/METABOLIC Hx Endocrine Disorders: No - HEMATOLOGICAL/ONCOLOGICAL Hx Blood Disorders: No Hx Leukemia: Yes - INTEGUMENTARY Hx Dermatological Problems: No - MUSCULOSKELETAL/RHEUMATOLOGICAL Hx Arthritis: Yes (L KNEE/L ANKLE/FOOT) - GASTROINTESTINAL Hx Gastrointestinal Disorders: No - GENITOURINARY/GYNECOLOGICAL Hx Genitourinary Disorders: No - PSYCHIATRIC Hx Substance Use: No - SURGICAL HISTORY Hx Surgeries: No - ANESTHESIA Hx Anesthesia: No Meds Allergies/Adverse Reactions: Allergies Allergy/AdvReac Type Severity Reaction Status Date / Time No Known Allergies Allergy Verified 02/28/17 10:08 Physical Exam - Constitutional Appears: Well - Head Exam Head Exam: ATRAUMATIC, NORMAL INSPECTION, NORMOCEPHALIC - Eye Exam Eye Exam: EOMI, Normal appearance, PERRL Pupil Exam: NORMAL ACCOMODATION, PERRL - ENT Exam ENT Exam: Mucous Membranes Moist, Normal Exam - Neck Exam Neck exam: Positive for: Normal Inspection - Respiratory Exam Respiratory Exam: Decreased Breath Sounds - Cardiovascular Exam Cardiovascular Exam: REGULAR RHYTHM, +S1, +S2 - GI/Abdominal Exam GI & Abdominal Exam: Diminished Bowel Sounds, Soft - Rectal Exam Rectal Exam: Deferred Results - Vital Signs Recent Vital Signs: Last Vital Signs Temp 98.7 F 02/28/17 14:32 Pulse 81 02/28/17 14:32 Resp 22 02/28/17 14:32 BP 122/65 02/28/17 14:32 Pulse Ox 100 02/28/17 14:32 - Labs Result Diagrams: 02/28/17 10:45 02/28/17 10:45
--- NOTE | 2017-02-28 21:15 | CP.PCM.CON ---
History of Present Illness - History of Present Illness History of Present Illness: 82 year old male with a history of HTN, HL, AML diagnosed in 01/2017 on hydroxyurea, admitted with symptomatic anemia. The patient was seen by his PMD and found to be anemic on blood testing and told to report to the hospital. The patient notes to progressive fatigue and denies bleeding or bruising. His hgb was found to be 7.1 He is s/p 1 unit PRBC and notes to feeling better but still slightly fatigued. Past medical history: HTN, HL, AML Past surgical history: None Family history: Denies hematologic and oncologic problems Social history: Denies tobacco, alcohol, and illicit drug use. Allergies: NKA Review of systems: All remaining review of systems including HEENT, cardiovascular, respiratory, gastrointestinal, genitourinary, musculoskeletal, dermatologic, neurologic, and psychiatric are negative unless mentioned in the HPI. Past Patient History - Past Medical History & Family History Past Medical History?: Yes - Past Social History Smoking Status: Never Smoked - CARDIAC Hx Hypercholesterolemia: Yes Hx Hypertension: Yes - PULMONARY Hx Respiratory Disorders: No - NEUROLOGICAL Hx Neurological Disorder: No - HEENT Hx HEENT Problems: No - RENAL Hx Chronic Kidney Disease: No - ENDOCRINE/METABOLIC Hx Endocrine Disorders: No - HEMATOLOGICAL/ONCOLOGICAL Hx Blood Disorders: No Hx Leukemia: Yes - INTEGUMENTARY Hx Dermatological Problems: No - MUSCULOSKELETAL/RHEUMATOLOGICAL Hx Arthritis: Yes (L KNEE/L ANKLE/FOOT) - GASTROINTESTINAL Hx Gastrointestinal Disorders: No - GENITOURINARY/GYNECOLOGICAL Hx Genitourinary Disorders: No - PSYCHIATRIC Hx Substance Use: No - SURGICAL HISTORY Hx Surgeries: No - ANESTHESIA Hx Anesthesia: No Meds Allergies/Adverse Reactions: Allergies Allergy/AdvReac Type Severity Reaction Status Date / Time No Known Allergies Allergy Verified 02/28/17 10:08 - Medications Medications: Current Medications Aspirin (Ecotrin) 81 mg PO DAILY [facility] Ezetimibe (Zetia) 10 mg PO DAILY [facility] Hydroxyurea (Hydrea) 500 mg PO DAILY [facility] Metoprolol Succinate (Toprol Xl) 25 mg PO DAILY [facility] Pneumococcal Polyvalent Vaccine (Pneumovax 23 Vaccine) 0.5 ml SC .ONCE ONE Stop: 03/03/17 10:01 Triamterene/HCTZ (Dyazide 25 Mg-37.5 Mg) 1 cap PO DAILY [facility] Vitamin B Complex/Vitamin C (Berocca) 1 tab PO DAILY [facility] Physical Exam - Head Exam Head Exam: ATRAUMATIC - Eye Exam Eye Exam: Normal appearance - ENT Exam ENT Exam: Mucous Membranes Dry - Respiratory Exam Respiratory Exam: NORMAL BREATHING PATTERN - Cardiovascular Exam Cardiovascular Exam: +S1, +S2 - GI/Abdominal Exam GI & Abdominal Exam: Normal Bowel Sounds - Extremities Exam Extremities exam: Positive for: normal inspection - Neurological Exam Neurological exam: Oriented x3 - Psychiatric Exam Psychiatric exam: Normal Affect, Normal Mood - Skin Skin Exam: Warm Results - Vital Signs Recent Vital Signs: Last Vital Signs Temp 98.1 F 02/28/17 16:03 Pulse 87 02/28/17 16:03 Resp 18 02/28/17 16:03 BP 114/63 02/28/17 16:03 Pulse Ox 97 02/28/17 17:13 - Labs Result Diagrams: 02/28/17 10:45 02/28/17 10:45 Assessment & Plan (1) Anemia Assessment and Plan: anemia of chronic disease and anemia of malignancy s/p 1U PRBC Will transfuse an additional 1U PRBC tonight Status: Acute (2) Thrombocytopenia Assessment and Plan: secondary to AML no transfusion indication Status: Acute (3) Leukocytosis Assessment and Plan: secondary to AML Status: Acute (4) 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
--- NOTE | 2017-03-01 07:39 | CP.PCM.PN ---
Subjective - Date & Time of Evaluation Date of Evaluation: 03/01/17 Time of Evaluation: 05:50 - Subjective Subjective: clinically same Objective - Vital Signs/Intake and Output Vital Signs (last 24 hours): Temp Pulse Resp BP Pulse Ox 98.6 F 77 18 107/62 96 03/01/17 01:30 03/01/17 01:30 03/01/17 01:30 03/01/17 01:30 03/01/17 00:18 Intake and Output: 03/01/17 03/01/17 06:59 18:59 Intake Total 1225 Balance 1225 - Medications Medications: Current Medications Aspirin (Ecotrin) 81 mg PO DAILY [facility] Ezetimibe (Zetia) 10 mg PO DAILY [facility] Hydroxyurea (Hydrea) 500 mg PO DAILY [facility] Metoprolol Succinate (Toprol Xl) 25 mg PO DAILY [facility] Pneumococcal Polyvalent Vaccine (Pneumovax 23 Vaccine) 0.5 ml SC .ONCE ONE Stop: 03/03/17 10:01 Triamterene/HCTZ (Dyazide 25 Mg-37.5 Mg) 1 cap PO DAILY [facility] Vitamin B Complex/Vitamin C (Berocca) 1 tab PO DAILY [facility] - Constitutional Appears: Well - Head Exam Head Exam: ATRAUMATIC, NORMAL INSPECTION, NORMOCEPHALIC - Eye Exam Eye Exam: EOMI, Normal appearance, PERRL Pupil Exam: NORMAL ACCOMODATION, PERRL - ENT Exam ENT Exam: Mucous Membranes Moist, Normal Exam - Neck Exam Neck Exam: absent: Lymphadenopathy - Respiratory Exam Respiratory Exam: Decreased Breath Sounds - Cardiovascular Exam Cardiovascular Exam: REGULAR RHYTHM, +S1, +S2 - GI/Abdominal Exam GI & Abdominal Exam: Soft, Diminished Bowel Sounds - Rectal Exam Rectal Exam: Deferred
[2017-03-01 08:16] VITALS: RESP 20; O2SAT 97
[2017-03-01 08:43] LABS: POTASSIUM 4.1 mmol/L (3.6-5.2)
[2017-03-01 08:46] LABS: URIC ACID 11.8 mg/dL (3.5-8.5)
[2017-03-01 08:51] LABS: BASO # 0.2 K/uL (0.0-0.2); BASO % 0.4 % (0.0-2.0); EOS # 0.2 K/uL (0.0-0.7); EOS % 0.3 % (0.0-4.0); HEMATOCRIT 28.6 % (35.0-51.0); LYMPH % 9.4 % (20.0-40.0); MEAN CELL VOLUME 94.7 fL (80.0-94.0); MEAN CORPUSCULAR HEMOGLOBIN 30.6 pg (27.0-31.0); MEAN CORPUSCULAR HGB CONC 32.3 g/dL (33.0-37.0); MEAN PLATELET VOLUME 9.8 fL (7.2-11.7); MONO # 14.3 K/uL (0.0-0.8); MONO % 26.6 % (0.0-10.0); PLATELET COUNT 41 K/uL (130-400)
[2017-03-01 08:56] LABS: WHITE BLOOD COUNT 53.7 K/uL (4.8-10.8)
[2017-03-01] MEDS ORDERED: hydroCHLOROthiazide-Triamterene 25 mg-37.5 mg Cap UD PO SCH (10:00)
[2017-03-01] MEDS ORDERED: Metoprolol Succinate 25 mg XL Tab PO SCH (10:00)
[2017-03-01] MEDS ORDERED: Enoxaparin 30 mg Syringe SC SCH (10:00)
[2017-03-01] MEDS ORDERED: Vitamin B Complex/Vitamin C Tab PO SCH (10:00)
[2017-03-01 10:33] LABS: BLASTS 8 % (0-0); METAMYELOCYTE 4 % (0-0); MYELOCYTE 11 % (0-0); NEUTROPHIL 31 % (50-75); PROMYELOCYTE 2 % (0-0); TOTAL CELLS COUNTED 100
[2017-03-01 10:34] LABS: SMUDGE CELLS PRESENT
[2017-03-01 17:45] VITALS: BP 130/72; PULSE 68; TEMP 98
[2017-03-03] MEDS ORDERED: Pneumococcal 23-Valent Vaccine SC ONE (10:00)
== END 2017-03-01 19:55 | disposition home or self-care (01) ==
LOC: C.ER 09:58 → C.9E 11:51 → C.3T 14:20
PROVIDERS: ADMIT Internal Medicine Nephrology; ATTEND Internal Medicine Nephrology
DX: C92.00 Acute myeloblastic leukemia, not having achieved remission (principal); M17.12 Unilateral primary osteoarthritis, left knee; M19.072 Primary osteoarthritis, left ankle and foot; I10 Essential (primary) hypertension; E78.00 Pure hypercholesterolemia, unspecified; D63.0 Anemia in neoplastic disease; D69.59 Other secondary thrombocytopenia
CPT/HCPCS: 36415; 36430; 80048; 80053; 84550; 85025; 86850; 86900; 86920; 87040; 99285; G0378; P9051

== ENCOUNTER 2017-03-26 15:08 | Inpatient (IN) | payer MEDICARE, OTHER ==
[2017-03-26 16:31] LABS: ALB/GLOB RATIO 1.2 (1.0-2.1); BILIRUBIN,TOTAL 0.5 mg/dL (0.2-1.3); CALCIUM 8.5 mg/dl (8.6-10.4); POTASSIUM 4.7 mmol/L (3.6-5.2); TOTAL PROTEIN 6.9 g/dL (6.3-8.3)
[2017-03-26 16:33] LABS: BASO # 0.2 K/uL (0.0-0.2); BASO % 0.2 % (0.0-2.0); EOS # 0.5 K/uL (0.0-0.7); EOS % 0.5 % (0.0-4.0); LYMPH # 8.1 K/uL (1.0-4.3); MEAN CELL VOLUME 93.1 fL (80.0-94.0); MEAN CORPUSCULAR HEMOGLOBIN 29.3 pg (27.0-31.0); MEAN CORPUSCULAR HGB CONC 31.4 g/dL (33.0-37.0); MEAN PLATELET VOLUME 10.3 fL (7.2-11.7); MONO # 52.2 K/uL (0.0-0.8); MONO % 51.1 % (0.0-10.0); NRBC % 0.3 % (0.0-2.0); RED CELL DISTRIBUTION WIDTH 18.6 % (11.5-14.5)
--- NOTE | 2017-03-26 17:07 | C.PDOC ---
History Of Present Illness 82 y/o male, whose PMHx includes Anemia, Leukemia, and HTN, presents to the ED with son for evaluation of generalized weakness which began several days ago. As per son, patient begins feeling very weak after walking a few steps. Patient was admitted on 02/28 and underwent a blood transfusion. Patient denies fever, chills, headache, chest pain, abdominal pain, extremity numbness/weakness. Time Seen by Provider: 03/26/17 16:44 Chief Complaint (Nursing): Weakness/Neurological Deficit History Per: Patient, Family History/Exam Limitations: no limitations Onset/Duration Of Symptoms: Days Current Symptoms Are (Timing): Still Present Associated Symptoms Preceding Syncopal Episode: No Predromal Symptoms (Sudden Onset) Seizure Or Post-ictal Symptoms: None Fall Associated With With Symptoms: No Additional History Per: Patient, Family Past Medical History Reviewed: Historical Data, Nursing Documentation, Vital Signs Vital Signs: Last Vital Signs Temp 97.9 F 03/26/17 15:26 Pulse 100 H 03/26/17 15:40 Resp 20 03/26/17 15:40 BP 120/60 03/26/17 15:40 Pulse Ox 100 03/26/17 18:07 - Medical History PMH: Arthritis (L KNEE/L ANKLE/FOOT), HTN, Hypercholesterolemia Surgical History: No Surg Hx - [facility] Procedures EXTRACTION OF ILIAC BONE MARROW, PERC APPROACH, DIAGN (02/09/17) TRANSFUSE NONAUT RED BLOOD CELLS IN PERIPH VEIN, PERC (02/09/17) Family History: States: Unknown Family Hx - Social History Hx Alcohol Use: No Hx Substance Use: No - Immunization History Hx Influenza Vaccination: Yes Hx Pneumococcal Vaccination: No Review Of Systems Constitutional: Positive for: Weakness. Negative for: Fever, Chills Cardiovascular: Positive for: Chest Pain (occasionally ) Gastrointestinal: Negative for: Abdominal Pain Neurological: Negative for: Weakness, Numbness, Headache Physical Exam - Physical Exam Appears: Non-toxic, No Acute Distress Skin: Warm, Dry, Pale Head: Atraumatic, Normacephalic Eye(s): bilateral: PERRL, EOMI, Other (pale conjunctiva ) Oral Mucosa: Moist Neck: Supple Chest: Symmetrical, No Deformity, No Tenderness Cardiovascular: Rhythm Regular, No Murmur Respiratory: Normal Breath Sounds, No Rales, No Rhonchi, No Wheezing Gastrointestinal/Abdominal: Soft, No Tenderness, No Guarding, No Rebound Back: Normal Inspection, No Vertebral Tenderness, No Paraspinal Tenderness Extremity: Normal ROM, No Tenderness, Pedal Edema (mild ), No Calf Tenderness, Capillary Refill (less than 2 seconds ) Neurological/Psych: Oriented x3, Normal Speech, Normal Cognition Gait: Unable To Assess ED Course And Treatment - Laboratory Results Result Diagrams: 03/26/17 16:00 03/26/17 16:00 O2 Sat by Pulse Oximetry: 100 (on RA) Pulse Ox Interpretation: Normal - Other Rad CXR X-Ray: Interpreted by Me, Viewed By Me, Read By Radiologist Interpretation: PROCEDURE: CHEST RADIOGRAPH, 1 VIEW Technique: Single view portable semi erect @ 17:31. HISTORY: SOB. COMPARISON: 02/09/2017. FINDINGS : LUNGS: Clear. PLEURA: No pneumothorax or pleural fluid seen. CARDIOVASCULAR: No radiographic findings to suggest acute or significant cardiovascular disease. OSSEOUS STRUCTURES: No significant abnormalities. VISUALIZED UPPER ABDOMEN: Normal. OTHER FINDINGS: None. IMPRESSION: No active disease. No acute/significant interval changes. Medical Decision Making Medical Decision Making: Impression: 82 y/o male with generalized weakness Plan: * labs * EKG * CXR * reassess and disposition Progress: labs, EKG, and CXR ordered and reviewed. Disposition Discussed With Dr.: Layla Mosley Doctor Will See Patient In The: Hospital Counseled Patient/Family Regarding: Studies Performed, Diagnosis - Disposition Disposition: HOSPITALIZED Disposition Time: 17:34 Condition: SERIOUS Forms: [facility] (Hungarian) - Clinical Impression Clinical Impression: Anemia, Leukemia - Scribe Statement The provider has reviewed the documentation as recorded by the Scribe (Dasha Mosley) Provider Attestation: All medical record entries made by the Scribe were at my direction and personally dictated by me. I have reviewed the chart and agree that the record accurately reflects my personal performance of the history, physical exam, medical decision making, and the department course for this patient. I have also personally directed, reviewed, and agree with the discharge instructions and disposition. Decision To Admit - Pt Status Changed To: Hospital Disposition Of: Inpatient - Admit Certification Admit to Inpatient:: After my assessment, the patient will require hospitalization for at least two midnights. This is because of the severity of symptoms shown, intensity of services needed, and/or the medical risk in this patient being treated as an outpatient. - InPatient: Physician Admission Certification: I certify that this patient requires 2 or more midnights of care for the following reason:: severe symptomatic anemia - . Bed Request Type: Telemetry Patient Diagnosis: Anemia, Leukemia
--- NOTE | 2017-03-26 17:46 | RAD ---
PROCEDURE: CHEST RADIOGRAPH, 1 VIEW Technique: Single view portable semi erect @ 17:31. HISTORY: SOB COMPARISON: 02/09/2017. FINDINGS: LUNGS: Clear. PLEURA: No pneumothorax or pleural fluid seen. CARDIOVASCULAR: No radiographic findings to suggest acute or significant cardiovascular disease. OSSEOUS STRUCTURES: No significant abnormalities. VISUALIZED UPPER ABDOMEN: Normal. OTHER FINDINGS: None. IMPRESSION: No active disease. No acute/significant interval changes.
[2017-03-26 17:54] LABS: WHITE BLOOD COUNT 102.1 K/uL (4.8-10.8)
[2017-03-26 17:55] LABS: PLATELET COUNT 27 K/uL (130-400)
[2017-03-26 18:05] LABS: INR 1.3
[2017-03-26 19:49] LABS: RBC URINE 4 /hpf (0-3); URINE BACTERIA RARE (<OCC); URINE BILIRUBIN NEGATIVE (NEGATIVE); URINE BLOOD 1+ (NEGATIVE); URINE COLOR Yellow (YELLOW); URINE GLUCOSE (UA) NORMAL (Normal); URINE KETONE NEGATIVE (NEGATIVE); URINE LEUKOCYTE ESTERASE NEG Leu/uL (Negative); URINE PROTEIN NEGATIVE (NEGATIVE); URINE UROBILINOGEN NORMAL mg/dL (0.2-1.0); WBC URINE < 1 /hpf (0-5)
--- NOTE | 2017-03-26 20:17 | CP.PCM.HP ---
Past Patient History - Past Medical History & Family History Past Medical History?: Yes - Past Social History Smoking Status: Never Smoked - CARDIAC Hx Hypercholesterolemia: Yes Hx Hypertension: Yes - PULMONARY Hx Respiratory Disorders: No - NEUROLOGICAL Hx Neurological Disorder: No - HEENT Hx HEENT Problems: No - RENAL Hx Chronic Kidney Disease: No - ENDOCRINE/METABOLIC Hx Endocrine Disorders: No - HEMATOLOGICAL/ONCOLOGICAL Hx Blood Disorders: No Hx Leukemia: Yes - INTEGUMENTARY Hx Dermatological Problems: No - MUSCULOSKELETAL/RHEUMATOLOGICAL Hx Arthritis: Yes (L KNEE/L ANKLE/FOOT) - GASTROINTESTINAL Hx Gastrointestinal Disorders: No - GENITOURINARY/GYNECOLOGICAL Hx Genitourinary Disorders: No - PSYCHIATRIC Hx Substance Use: No - SURGICAL HISTORY Hx Surgeries: No - ANESTHESIA Hx Anesthesia: No Meds Allergies/Adverse Reactions: Allergies Allergy/AdvReac Type Severity Reaction Status Date / Time No Known Allergies Allergy Verified 02/28/17 10:08 Physical Exam - Constitutional Appears: Well - Head Exam Head Exam: ATRAUMATIC, NORMAL INSPECTION, NORMOCEPHALIC - Eye Exam Eye Exam: EOMI, Normal appearance, PERRL Pupil Exam: NORMAL ACCOMODATION, PERRL - ENT Exam ENT Exam: Mucous Membranes Moist, Normal Exam - Neck Exam Neck exam: Positive for: Normal Inspection - Respiratory Exam Respiratory Exam: Decreased Breath Sounds - GI/Abdominal Exam GI & Abdominal Exam: Diminished Bowel Sounds, Soft - Rectal Exam Rectal Exam: Deferred Results - Vital Signs Recent Vital Signs: Last Vital Signs Temp 97.6 F 03/26/17 19:40 Pulse 98 H 03/26/17 19:40 Resp 18 03/26/17 19:40 BP 148/80 03/26/17 19:40 Pulse Ox 100 03/26/17 19:40 - Labs Result Diagrams: 03/26/17 16:00 03/26/17 16:00 Labs: Laboratory Results - last 24 hr 03/26/17 19:52 Urine Color Yellow Urine Clarity Clear Urine pH 5.0 Ur Specific [place] 1.010 Urine Protein Negative Urine Glucose (UA) Normal Urine Ketones Negative Urine Blood 1+ H Urine Nitrate Negative Urine Bilirubin Negative Urine Urobilinogen Normal Ur Leukocyte Esterase Neg Urine WBC (Auto) < 1 Urine RBC (Auto) 4 H Ur Squamous Epith Cells < 1 Urine Bacteria Rare
[2017-03-26 22:03] LABS: BLASTS 25 % (0-0); EOSINOPHIL 1 % (0-4); METAMYELOCYTE 3 % (0-0); MYELOCYTE 9 % (0-0); NEUTROPHIL 18 % (50-75); PROMYELOCYTE 7 % (0-0); REACTIVE LYMPHOCYTES 4 % (0-0); TOTAL CELLS COUNTED 100
[2017-03-26 22:05] LABS: GIANT PLATELETS PRESENT; LARGE PLATELETS PRESENT; SMUDGE CELLS PRESENT
[2017-03-27 00:32] VITALS: RESP 20
[2017-03-27 07:09] LABS: BASO # 0.2 K/uL (0.0-0.2); BASO % 0.2 % (0.0-2.0); EOS # 0.6 K/uL (0.0-0.7); EOS % 0.6 % (0.0-4.0); HEMATOCRIT 28.3 % (35.0-51.0); LYMPH % 8.3 % (20.0-40.0); MEAN CELL VOLUME 91.7 fL (80.0-94.0); MEAN CORPUSCULAR HEMOGLOBIN 30.1 pg (27.0-31.0); MEAN CORPUSCULAR HGB CONC 32.8 g/dL (33.0-37.0); MEAN PLATELET VOLUME 9.6 fL (7.2-11.7); MONO # 46.8 K/uL (0.0-0.8); MONO % 48.5 % (0.0-10.0); RED CELL DISTRIBUTION WIDTH 17.1 % (11.5-14.5)
[2017-03-27 07:16] LABS: PLATELET COUNT 24 K/uL (130-400); WHITE BLOOD COUNT 96.3 K/uL (4.8-10.8)
[2017-03-27 07:48] LABS: POTASSIUM 4.4 mmol/L (3.6-5.2)
[2017-03-27 07:50] LABS: ALB/GLOB RATIO 1.1 (1.0-2.1); BILIRUBIN,TOTAL 1.2 mg/dL (0.2-1.3); TOTAL PROTEIN 7.3 g/dL (6.3-8.3)
[2017-03-27 07:51] LABS: CALCIUM 8.4 mg/dl (8.6-10.4)
[2017-03-27 09:21] VITALS: BP 123/64; PULSE 86; TEMP 98; O2SAT 100
[2017-03-27 09:27] LABS: METAMYELOCYTE 5 % (0-0); TOTAL CELLS COUNTED 100
[2017-03-27 09:28] LABS: NEUTROPHIL 20 % (50-75)
[2017-03-27 09:29] LABS: PROMYELOCYTE 6 % (0-0)
[2017-03-27 09:30] LABS: BLASTS 22 % (0-0); REACTIVE LYMPHOCYTES 5 % (0-0)
[2017-03-27 09:31] LABS: SMUDGE CELLS PRESENT
[2017-03-27 09:32] LABS: MYELOCYTE 5 % (0-0)
[2017-03-27] MEDS: Enoxaparin 40 mg Syringe SC SCH ×2 (09:39→09:45)
[2017-03-27] MEDS ORDERED: hydroCHLOROthiazide-Triamterene 25 mg-37.5 mg Cap UD PO SCH (10:00)
[2017-03-27] MEDS ORDERED: Pantoprazole 40 mg EC Tab PO SCH (10:00)
[2017-03-27] MEDS ORDERED: Metoprolol Succinate 25 mg XL Tab PO SCH (10:00)
--- NOTE | 2017-03-27 14:09 | CP.PCM.PN ---
Subjective - Date & Time of Evaluation Date of Evaluation: 03/27/17 Time of Evaluation: 14:09 - Subjective Subjective: PT SEEN BY BOTH DR. EASON AND Jorge Alberto FAUST;' CLEARED BY BOTH FOR D/C HOME TODAY. TO F/U WITH DR. EASON IN OFFICE NEXT WEEK. TO F/U WITH DR. FAUST NEXT WEEK. NO NEW RX. NO FURTHER ORDERS. Objective - Vital Signs/Intake and Output Vital Signs (last 24 hours): Temp Pulse Resp BP Pulse Ox 98.0 F 86 20 123/64 100 03/27/17 09:19 03/27/17 09:19 03/27/17 09:19 03/27/17 09:19 03/27/17 09:19 Intake and Output: 03/27/17 03/27/17 06:59 18:59 Intake Total 1300 Balance 1300 - Medications Medications: Current Medications Ezetimibe (Zetia) 10 mg PO DAILY [facility] Last Admin: 03/27/17 09:39 Dose: 10 mg Gabapentin (Neurontin) 100 mg PO DAILY [facility] Last Admin: 03/27/17 09:39 Dose: 100 mg Hydroxyurea (Hydrea) 500 mg PO DAILY [facility] Last Admin: 03/27/17 09:39 Dose: 500 mg Metoprolol Succinate (Toprol Xl) 25 mg PO DAILY [facility] Last Admin: 03/27/17 09:39 Dose: 25 mg Pantoprazole Sodium (Protonix Ec Tab) 40 mg PO DAILY [facility] Last Admin: 03/27/17 09:39 Dose: 40 mg Triamterene/HCTZ (Dyazide 25 Mg-37.5 Mg) 1 cap PO DAILY [facility] Last Admin: 03/27/17 09:39 Dose: 1 cap - Labs Labs: 03/27/17 06:59 03/27/17 06:59 PT 15.1 SECONDS (9.7-12.2) H 03/26/17 17:27 INR 1.3 03/26/17 17:27 APTT 28 SECONDS (21-34) 03/26/17 17:27
--- NOTE | 2017-03-27 18:53 | CP.PCM.PN ---
Subjective - Date & Time of Evaluation Date of Evaluation: 03/27/17 Objective - Vital Signs/Intake and Output Vital Signs (last 24 hours): Temp Pulse Resp BP Pulse Ox 98.0 F 86 20 123/64 100 03/27/17 09:19 03/27/17 09:19 03/27/17 09:19 03/27/17 09:19 03/27/17 09:19 Intake and Output: 03/27/17 03/27/17 06:59 18:59 Intake Total 1300 Balance 1300 - Labs Labs: 03/27/17 06:59 03/27/17 06:59 PT 15.1 SECONDS (9.7-12.2) H 03/26/17 17:27 INR 1.3 03/26/17 17:27 APTT 28 SECONDS (21-34) 03/26/17 17:27
--- NOTE | 2017-03-29 10:23 | CARD ---
APPROVED REPORT EKG Measurement Heart [id number] <Conclusion> Normal sinus rhythm with sinus arrhythmia Normal ECG
== END 2017-03-27 16:00 | disposition home or self-care (01) | DRG 842 ==
LOC: C.ER 15:08 → C.9E 17:41 → C.6T 18:28
PROVIDERS: ADMIT Internal Medicine Nephrology; ATTEND Internal Medicine Nephrology
DX: C95.90 Leukemia, unspecified not having achieved remission (principal); D64.9 Anemia, unspecified; I10 Essential (primary) hypertension; R53.1 Weakness; E78.00 Pure hypercholesterolemia, unspecified; M17.12 Unilateral primary osteoarthritis, left knee

== ENCOUNTER 2017-04-30 16:11 | Inpatient (IN) | payer MEDICARE, OTHER ==
[2017-04-30 16:11] VITALS: BMI 24.2
[2017-04-30 17:13] LABS: BASO # 2.7 K/uL (0.0-0.2); BASO % 1.3 % (0.0-2.0); EOS # 2.3 K/uL (0.0-0.7); EOS % 1.2 % (0.0-4.0); LYMPH # 3.3 K/uL (1.0-4.3); LYMPH % 1.6 % (20.0-40.0); MEAN CELL VOLUME 87.5 fL (80.0-94.0); MEAN CORPUSCULAR HEMOGLOBIN 28.8 pg (27.0-31.0); MEAN CORPUSCULAR HGB CONC 32.9 g/dL (33.0-37.0); MEAN PLATELET VOLUME 8.7 fL (7.2-11.7); MONO # 99.2 K/uL (0.0-0.8); MONO % 49.1 % (0.0-10.0); RED CELL DISTRIBUTION WIDTH 17.3 % (11.5-14.5)
[2017-04-30 17:19] LABS: POTASSIUM 5.3 mmol/L (3.6-5.2)
[2017-04-30 17:21] LABS: ALB/GLOB RATIO 0.9 (1.0-2.1); BILIRUBIN,TOTAL 0.7 mg/dL (0.2-1.3); TOTAL PROTEIN 6.9 g/dL (6.3-8.3)
[2017-04-30 17:22] LABS: CALCIUM 8.1 mg/dl (8.6-10.4)
[2017-04-30 17:23] LABS: INR 1.3
[2017-04-30 17:24] LABS: PLATELET COUNT 30 K/uL (130-400)
[2017-04-30] MEDS ORDERED: Clindamycin 600mg/50ml D5W 600 MG/50 ML VIAL IVPB STA (17:49)
--- NOTE | 2017-04-30 17:53 | C.PDOC ---
Time Seen by Provider: 04/30/17 16:29 Chief Complaint (Nursing): GI Problem History Per: Patient, Family Onset/Duration Of Symptoms: Days (about 1 week), Gradual Current Symptoms Are (Timing): Worse Location Of Injury: Posterior: Perineum (Sarah-rectal) Quality Of Symptoms: Painful, Swollen. denies: Draining Severity: Severe Additional History Per: Prior Records Past Medical History Reviewed: Historical Data, Nursing Documentation, Vital Signs Vital Signs: Last Vital Signs Temp 97.5 F L 04/30/17 16:18 Pulse 92 H 04/30/17 16:18 Resp 20 04/30/17 16:18 BP 111/67 04/30/17 16:18 Pulse Ox 98 04/30/17 16:18 - Medical History PMH: Anemia, Arthritis (L KNEE/L ANKLE/FOOT), HTN, Hypercholesterolemia, Malignancy (Leukemia) Surgical History: No Surg Hx - [facility] Procedures EXTRACTION OF ILIAC BONE MARROW, PERC APPROACH, DIAGN (02/09/17) TRANSFUSE NONAUT RED BLOOD CELLS IN PERIPH VEIN, PERC (02/09/17) Family History: States: Unknown Family Hx - Social History Hx Alcohol Use: No Hx Substance Use: No - Immunization History Hx Influenza Vaccination: Yes Hx Pneumococcal Vaccination: No Review Of Systems Except As Marked, All Systems Reviewed And Found Negative. Constitutional: Positive for: Malaise Respiratory: Negative for: Shortness of Breath Gastrointestinal: Positive for: Rectal Pain. Negative for: Vomiting, Abdominal Pain, Diarrhea, Constipation, Hematochezia Musculoskeletal: Negative for: Neck Pain Skin: Negative for: Rash Neurological: Negative for: Weakness, Numbness Physical Exam - Physical Exam Appears: No Acute Distress, Chronically Ill Skin: Warm, Dry Head: Atraumatic Eye(s): bilateral: PERRL Neck: Normal ROM, Supple Cardiovascular: Rhythm Regular Respiratory: Normal Breath Sounds, No Accessory Muscle Use Gastrointestinal/Abdominal: Soft, No Tenderness Rectal: Mass (Sarah-rectal abscess), Tenderness Back: No CVA Tenderness Extremity: Normal ROM Neurological/Psych: Oriented x3, Normal Motor ED Course And Treatment - Laboratory Results Result Diagrams: 04/30/17 17:04 04/30/17 17:04 Lab Interpretation: Abnormal Interpretation Of Abnormal: Leukemic WBC count. Thrombocytopenia. Renal insufficiency. O2 Sat by Pulse Oximetry: 98 Pulse Ox Interpretation: Normal Disposition Discussed With : Layla Mosley Comment: He accepted pt on his service as pt's PMD is Dr. Becky Ramirez. Doctor Will See Patient In The: Hospital Counseled Patient/Family Regarding: Studies Performed, Diagnosis - Disposition Disposition: HOSPITALIZED Disposition Time: 17:54 Condition: SERIOUS - Clinical Impression Clinical Impression: Perirectal abscess, Leukemia, Thrombocytopenia
[2017-04-30 18:19] LABS: BLASTS 15 % (0-0); EOSINOPHIL 3 % (0-4); METAMYELOCYTE 3 % (0-0); MYELOCYTE 3 % (0-0); NEUTROPHIL 34 % (50-75); TOTAL CELLS COUNTED 100
[2017-04-30] MEDS ORDERED: Clindamycin 600mg/50ml NS 600 MG/50 ML BAG IVPB ONE (18:51)
--- NOTE | 2017-04-30 18:52 | CP.PCM.HP ---
Past Patient History - Past Medical History & Family History Past Medical History?: Yes - Past Social History Smoking Status: Never Smoked - CARDIAC Hx Hypercholesterolemia: Yes Hx Hypertension: Yes - PULMONARY Hx Respiratory Disorders: No - NEUROLOGICAL Hx Neurological Disorder: No - HEENT Hx HEENT Problems: No - RENAL Hx Chronic Kidney Disease: No - ENDOCRINE/METABOLIC Hx Endocrine Disorders: No - HEMATOLOGICAL/ONCOLOGICAL Hx Anemia: Yes - INTEGUMENTARY Hx Dermatological Problems: No - MUSCULOSKELETAL/RHEUMATOLOGICAL Hx Arthritis: Yes (L KNEE/L ANKLE/FOOT) - GASTROINTESTINAL Hx Gastrointestinal Disorders: No - GENITOURINARY/GYNECOLOGICAL Hx Genitourinary Disorders: No - PSYCHIATRIC Hx Substance Use: No - SURGICAL HISTORY Hx Surgeries: No - ANESTHESIA Hx Anesthesia: No Meds Allergies/Adverse Reactions: Allergies Allergy/AdvReac Type Severity Reaction Status Date / Time No Known Allergies Allergy Verified 02/28/17 10:08 Physical Exam - Constitutional Appears: Well - Head Exam Head Exam: ATRAUMATIC, NORMAL INSPECTION, NORMOCEPHALIC - Eye Exam Eye Exam: EOMI, Normal appearance, PERRL Pupil Exam: NORMAL ACCOMODATION, PERRL - ENT Exam ENT Exam: Mucous Membranes Moist, Normal Exam - Neck Exam Neck exam: Positive for: Normal Inspection - Respiratory Exam Respiratory Exam: Decreased Breath Sounds - Cardiovascular Exam Cardiovascular Exam: REGULAR RHYTHM, +S1, +S2 - GI/Abdominal Exam GI & Abdominal Exam: Diminished Bowel Sounds, Soft - Rectal Exam Rectal Exam: Deferred Results - Vital Signs Recent Vital Signs: Last Vital Signs Temp 97.5 F L 04/30/17 16:18 Pulse 92 H 04/30/17 16:18 Resp 20 04/30/17 16:18 BP 111/67 04/30/17 16:18 Pulse Ox 98 04/30/17 17:55 - Labs Result Diagrams: 04/30/17 17:04 04/30/17 17:04 Labs: Laboratory Results - last 24 hr 04/30/17 04/30/17 04/30/17 17:04 17:04 17:04 WBC 202.0 H* RBC 3.32 L Hgb 9.5 L D Hct 29.0 L MCV 87.5 MCH 28.8 MCHC 32.9 L RDW 17.3 H Plt Count 30 L* MPV 8.7 Neut % (Auto) 46.8 L Lymph % (Auto) 1.6 L [place] % (Auto) 49.1 H Eos % (Auto) 1.2 Baso % (Auto) 1.3 Neut # 94.6 H Lymph # 3.3 [place] # 99.2 H Eos # 2.3 H Baso # 2.7 H Neutrophils % (Manual) 34 L Band Neutrophils % 8 H Lymphocytes % (Manual) 4 L Monocytes % (Manual) 30 H Eosinophils % (Manual) 3 Metamyelocytes % 3 H Myelocytes % 3 H Blast Cells % 15 H Platelet Estimate Decreased L Polychromasia Slight Hypochromasia (manual) Slight Poikilocytosis (manual Slight Anisocytosis (manual) Slight Tear Drop Cells Slight Ovalocytes Slight Carmenza Cells Slight PT 15.0 H INR 1.3 APTT 29 Sodium 127 L Potassium 5.3 H Chloride 97 L Carbon Dioxide 19 L Anion Gap 16 BUN 76 H Creatinine 2.4 H Est GFR ( Amer) 31 Est GFR (Non-Af Amer) 26 Random Glucose 101 Calcium 8.1 L Total Bilirubin 0.7 AST 41 ALT 40 Alkaline Phosphatase 86 Total Protein 6.9 Albumin 3.3 L Globulin 3.6 Albumin/Globulin Ratio 0.9 L
[2017-04-30] MEDS: Sodium Chloride 0.9% 1,000 ML IV SCH (22:50)
[2017-05-01] MEDS: Piperacill/Tazo 2.25gm in Dex 2.25 GM/50 ML BAG IVPB SCH ×5 (00:24→23:47)
--- NOTE | 2017-05-01 05:53 | CP.PCM.CON ---
<Iris Sam - Last Filed: 05/01/17 06:11> History of Present Illness - History of Present Illness History of Present Illness: Surgery: Dr. Mehta Reason for consult: gayla-rectal abscess CC: gayla-rectal swelling HPI: Patient is an 82 y/o male w/ significant pmhx of leukemia who present complaining of swelling to the perineum/gayla-rectal area x 1 week. Patient denies any pain to the area unless touched. Patient denies f/c. History obtained mainly from records. Per family report, the swelling was noticed 1 week ago and progressively gotten larger. The swelling was associated with redness. No drainage. No diarrhea or constipation. Denies problems like this in the past. Denies trauma to the area. PMH: Leukemia, HTN, HLD PSH: bone marrow biopsy Social: denie ETOH, tobacco, or drug abuse Review of Systems - Review of Systems Review of Systems: negative unless stated in HPI Past Patient History - Past Medical History & Family History Past Medical History?: Yes - Past Social History Smoking Status: Never Smoked - CARDIAC Hx Hypercholesterolemia: Yes Hx Hypertension: Yes - PULMONARY Hx Respiratory Disorders: No - NEUROLOGICAL Hx Neurological Disorder: No - HEENT Hx HEENT Problems: No - RENAL Hx Chronic Kidney Disease: No - ENDOCRINE/METABOLIC Hx Endocrine Disorders: No - HEMATOLOGICAL/ONCOLOGICAL Hx Anemia: Yes Hx Leukemia: Yes - INTEGUMENTARY Hx Dermatological Problems: No - MUSCULOSKELETAL/RHEUMATOLOGICAL Hx Musculoskeletal Disorders: No Hx Falls: No - GASTROINTESTINAL Hx Gastrointestinal Disorders: No - GENITOURINARY/GYNECOLOGICAL Hx Genitourinary Disorders: No - PSYCHIATRIC Hx Psychophysiologic Disorder: No Hx Substance Use: No - SURGICAL HISTORY Hx Surgeries: No - ANESTHESIA Hx Anesthesia: No Meds Allergies/Adverse Reactions: Allergies Allergy/AdvReac Type Severity Reaction Status Date / Time No Known Allergies Allergy Verified 02/28/17 10:08 - Medications Medications: Current Medications Acetaminophen (Tylenol 325mg Tab) 650 mg PO Q8H PRN PRN Reason: Pain, moderate (4-7) Ezetimibe (Zetia) 10 mg PO DAILY [facility] Hydroxyurea (Hydrea) 500 mg PO DAILY [facility] Sodium Chloride (Sodium Chloride 0.9%) 1,000 mls @ 50 mls/hr IV .Q20H [facility] Last Admin: 04/30/17 22:50 Dose: 50 mls/hr Piperacillin Sod/Tazobactam Sod (Zosyn 2.25 Gm Iv Premix) 2.25 gm in 50 mls @ 100 mls/hr IVPB Q6H [facility] Last Admin: 05/01/17 05:18 Dose: 100 mls/hr Metoprolol Succinate (Toprol Xl) 25 mg PO DAILY [facility] Pantoprazole Sodium (Protonix Ec Tab) 40 mg PO DAILY [facility] Triamterene/HCTZ (Dyazide 25 Mg-37.5 Mg) 1 cap PO DAILY [facility] Vitamin B Complex/Vitamin C (Berocca) 1 tab PO DAILY [facility] Physical Exam - Constitutional Appears: Chronically Ill - Head Exam Head Exam: ATRAUMATIC, NORMOCEPHALIC - Eye Exam Eye Exam: EOMI - ENT Exam ENT Exam: Mucous Membranes Moist - Respiratory Exam Respiratory Exam: NORMAL BREATHING PATTERN. absent: Respiratory Distress - Cardiovascular Exam Cardiovascular Exam: REGULAR RHYTHM. absent: Tachycardia - GI/Abdominal Exam GI & Abdominal Exam: Soft. absent: Distended, Tenderness - Rectal Exam Rectal Exam: absent: Hemorrhoids Additional comments: inferior left gluteal abscess, close proximity to perineum, measuring 2x2 cm with mid area of fluctuance. minimal tenderness to palpation. - Extremities Exam Extremities exam: Negative for: calf tenderness - Neurological Exam Neurological exam: Alert - Skin Skin Exam: Dry, Warm Results - Vital Signs Recent Vital Signs: Last Vital Signs Temp 97.7 F 05/01/17 00:23 Pulse 82 05/01/17 00:23 Resp 20 05/01/17 00:23 BP 95/58 L 05/01/17 00:23 Pulse Ox 94 L 05/01/17 00:23 - Labs Result Diagrams: 04/30/17 17:04 04/30/17 17:04 Labs: Laboratory Results - last 24 hr 04/30/17 04/30/17 04/30/17 17:04 17:04 17:04 WBC 202.0 H* RBC 3.32 L Hgb 9.5 L D Hct 29.0 L MCV 87.5 MCH 28.8 MCHC 32.9 L RDW 17.3 H Plt Count 30 L* MPV 8.7 Neut % (Auto) 46.8 L Lymph % (Auto) 1.6 L [place] % (Auto) 49.1 H Eos % (Auto) 1.2 Baso % (Auto) 1.3 Neut # 94.6 H Lymph # 3.3 [place] # 99.2 H Eos # 2.3 H Baso # 2.7 H Neutrophils % (Manual) 34 L Band Neutrophils % 8 H Lymphocytes % (Manual) 4 L Monocytes % (Manual) 30 H Eosinophils % (Manual) 3 Metamyelocytes % 3 H Myelocytes % 3 H Blast Cells % 15 H Platelet Estimate Decreased L Polychromasia Slight Hypochromasia (manual) Slight Poikilocytosis (manual Slight Anisocytosis (manual) Slight Tear Drop Cells Slight Ovalocytes Slight Carmenza Cells Slight PT 15.0 H INR 1.3 APTT 29 Sodium 127 L Potassium 5.3 H Chloride 97 L Carbon Dioxide 19 L Anion Gap 16 BUN 76 H Creatinine 2.4 H Est GFR ( Amer) 31 Est GFR (Non-Af Amer) 26 Random Glucose 101 Calcium 8.1 L Total Bilirubin 0.7 AST 41 ALT 40 Alkaline Phosphatase 86 Total Protein 6.9 Albumin 3.3 L Globulin 3.6 Albumin/Globulin Ratio 0.9 L Assessment & Plan - Assessment and Plan (Free Text) Assessment: 82 y/o male w/ inferior gluteal abscess Plan: -may obtain pelvis CT scan to evaulate extension of abscess -recommend I&D, however platelet count is 30K. May need platelets prior to procedure. -warm compress to the area -culture if draining -rec heme/onc evaluation -further surgical recs per clinical course -further recs per Dr. Mehta AKWhite PGY3 <Ministerio Mehta - Last Filed: 05/03/17 19:42> Results - Vital Signs Recent Vital Signs: Last Vital Signs Temp 96.4 F L 05/02/17 08:42 Pulse 78 05/02/17 08:42 Resp 20 05/02/17 08:42 BP 102/66 05/02/17 08:42 Pulse Ox 96 05/02/17 08:42 - Labs Result Diagrams: 05/02/17 07:04 05/02/17 07:04 Attending/Attestation - Attestation I have personally seen and examined this patient.: Yes I have fully participated in the care of the patient.: Yes I have reviewed all pertinent clinical information: Yes Notes (Text): 05/03/17 19:40 Pt was seen and examined at bedside Agree with above note and assessment Pt with Perirectal abscess and thrombocytopenia Labs and radiology reviewed. Platelet transfusion I & D at bedside c.w IV antibiotics Plan d.w pt in detail Risk and benefit explained in detail.
[2017-05-01 07:48] LABS: HEMATOCRIT 28.1 % (35.0-51.0); MEAN CELL VOLUME 88.3 fL (80.0-94.0); MEAN CORPUSCULAR HEMOGLOBIN 28.7 pg (27.0-31.0); MEAN CORPUSCULAR HGB CONC 32.5 g/dL (33.0-37.0); MEAN PLATELET VOLUME 8.8 fL (7.2-11.7); RED CELL DISTRIBUTION WIDTH 17.6 % (11.5-14.5)
[2017-05-01 07:57] LABS: WHITE BLOOD COUNT 155.1 K/uL (4.8-10.8)
[2017-05-01 08:12] LABS: POTASSIUM 4.1 mmol/L (3.6-5.2)
[2017-05-01 08:15] LABS: BILIRUBIN,TOTAL 0.8 mg/dL (0.2-1.3); TOTAL PROTEIN 6.3 g/dL (6.3-8.3)
[2017-05-01 08:16] LABS: CALCIUM 7.8 mg/dl (8.6-10.4); MAGNESIUM 2.4 mg/dL (1.6-2.3); PHOSPHOROUS 6.1 mg/dL (2.5-4.5)
[2017-05-01 08:20] LABS: ALB/GLOB RATIO 0.9 (1.0-2.1)
[2017-05-01] MEDS: Metoprolol Succinate 25 mg XL Tab PO SCH (10:35)
[2017-05-01] MEDS: Pantoprazole 40 mg EC Tab PO SCH (10:36)
[2017-05-01] MEDS: hydroCHLOROthiazide-Triamterene 25 mg-37.5 mg Cap UD PO SCH (10:36)
[2017-05-01] MEDS: Vitamin B Complex/Vitamin C Tab PO SCH (10:37)
--- NOTE | 2017-05-01 14:02 | CT ---
PROCEDURE: CT Pelvis without contrast 408.06 HISTORY: perineum abscess COMPARISON: None. TECHNIQUE: Contiguous axial images of the pelvis . No intravenous or oral contrast given. Coronal and sagittal reformats generated. Radiation dose: Total exam DLP = 408.06 mGy-cm. This CT exam was performed using one or more of the following dose reduction techniques: Automated exposure control, adjustment of the mA and/or kV according to patient size, and/or use of iterative reconstruction technique. FINDINGS: There is a limited local reaction is seen related to this structure which is suggestive of probable perianal abscess extending into the medial buttocks subcutaneous fat. A simple fluid collection is not excluded but is difficult to evaluate given lack of intravenous contrast on this examination. Right buttocks is unremarkable. Further clinical correlation is recommended. Well-circumscribed intermediate density lesion measuring 16 Hounsfield units at the medial left buttocks/perianal space measuring 5.1 x 5.7 x 5.0 cm (transverse by anteroposterior by superoinferior dimensions). BLADDER: Unremarkable. No mass. REPRODUCTIVE ORGANS: Enlarged prostate gland is identified and there is a left inguinal hernia containing only mesenteric fat at this time. VISUALIZED BOWEL: Visualized bowel loops are poorly evaluated due to lack of oral and intravenous contrast agents but are nonfocal in appearance overall. PERITONEUM: Unremarkable, as visualized. No free fluid. No free air. LYMPH NODES: Moderate lymphadenopathy is appreciated and with ext with numerous enlarged lymph nodes scattered at the central Mesentery. Further, bilateral inguinal lymphadenopathy is appreciated with a a right inguinal lymph node measuring 2.5 by 1.4 cm in a left inguinal lymph node measuring 1.9 by 1.9 cm with additional similar with was identified not quite as large. Clinically for correlate for systemic inflammatory infectious process or even neoplasm. BONES: No destructive bony lesions identified or fracture. VASCULATURE: Extensive iliofemoral atherosclerosis identified bilaterally. OTHER FINDINGS: None. IMPRESSION: A 5.7 cm likely perianal/medial buttocks abscess is appreciated however lack venous contrast limits ability to differentiate this from a hematoma or seroma though the former is highly favored. Clinically correlate further. Systemic process resulting in prominent abdominal and inguinal lymphadenopathy is identified. Please see different diagnosis above. Clinically correlate further.
--- NOTE | 2017-05-01 14:14 | CP.PCM.PN ---
Subjective - Date & Time of Evaluation Date of Evaluation: 05/01/17 Time of Evaluation: 14:14 - Subjective Subjective: PGY-[address] Mosley's Service: Pt seen and examined at bedside. Nursing reports no acute events overnight. Patient reports pain at the site of his gluteal abscess, rating severity as 3/ 10. He denies fever, chills, but admits pain with moving his bowels but denies diarrhea or constipation. He admits tolerating diet without difficulty. Objective - Vital Signs/Intake and Output Vital Signs (last 24 hours): Temp Pulse Resp BP Pulse Ox 97.5 F L 87 20 95/58 L 95 05/01/17 08:25 05/01/17 08:25 05/01/17 08:25 05/01/17 00:23 05/01/17 08:25 Intake and Output: 05/01/17 05/01/17 06:59 18:59 Intake Total 400 Output Total 400 Balance 0 - Medications Medications: Current Medications Acetaminophen (Tylenol 325mg Tab) 650 mg PO Q8H PRN PRN Reason: Pain, moderate (4-7) Ezetimibe (Zetia) 10 mg PO DAILY [facility] Last Admin: 05/01/17 10:37 Dose: 10 mg Hydroxyurea (Hydrea) 500 mg PO DAILY [facility] Last Admin: 05/01/17 10:29 Dose: 500 mg Sodium Chloride (Sodium Chloride 0.9%) 1,000 mls @ 50 mls/hr IV .Q20H [facility] Last Admin: 04/30/17 22:50 Dose: 50 mls/hr Piperacillin Sod/Tazobactam Sod (Zosyn 2.25 Gm Iv Premix) 2.25 gm in 50 mls @ 100 mls/hr IVPB Q6H [facility] Last Admin: 05/01/17 11:37 Dose: 100 mls/hr Metoprolol Succinate (Toprol Xl) 25 mg PO DAILY [facility] Last Admin: 05/01/17 10:35 Dose: 25 mg Pantoprazole Sodium (Protonix Ec Tab) 40 mg PO DAILY [facility] Last Admin: 05/01/17 10:36 Dose: 40 mg Triamterene/HCTZ (Dyazide 25 Mg-37.5 Mg) 1 cap PO DAILY [facility] Last Admin: 05/01/17 10:36 Dose: 1 cap Vitamin B Complex/Vitamin C (Berocca) 1 tab PO DAILY [facility] Last Admin: 05/01/17 10:37 Dose: 1 tab - Labs Labs: 05/01/17 07:41 05/01/17 07:41 PT 15.0 SECONDS (9.7-12.2) H 04/30/17 17:04 INR 1.3 04/30/17 17:04 APTT 29 SECONDS (21-34) 04/30/17 17:04 - Constitutional Appears: Non-toxic, No Acute Distress, Chronically Ill - Head Exam Head Exam: ATRAUMATIC, NORMOCEPHALIC - Eye Exam Eye Exam: EOMI. absent: Scleral icterus - ENT Exam ENT Exam: Mucous Membranes Moist - Respiratory Exam Respiratory Exam: Clear to Ausculation Bilateral, NORMAL BREATHING PATTERN. absent: Rales, Rhonchi, Wheezes - Cardiovascular Exam Cardiovascular Exam: REGULAR RHYTHM, +S1, +S2 - GI/Abdominal Exam GI & Abdominal Exam: Soft, Normal Bowel Sounds. absent: Tenderness - Rectal Exam Additional comments: inferior left gluteal abscess; tenderness to palpation along abscess - Extremities Exam Extremities Exam: absent: Calf Tenderness, Pedal Edema, Tenderness - Neurological Exam Neurological Exam: Alert, Awake, Oriented x3 - Psychiatric Exam Psychiatric exam: Normal Affect, Normal Mood - Skin Skin Exam: Dry, Normal Color, Warm Assessment and Plan - Assessment and Plan (Free Text) Plan: Inferior Gluteal Abscess Surgical consult: Dr. Mehta, help appreciated - CT Pelvis (05/01/17): 5/7 cm likely perianal/medial buttocks abscess though unable to differentiate from seroma/hematome due to lack of contrast. Systemic process resulting in prominent abdominal/inguinal lymphadenopathy identified. Correlate clinically. (see full report) - warm compress to area - culture if draining Clindamycin 600mg IV ONCE in ED Zosyn 2.25gm IV Q6H Thrombocytopenia Platelet count: < 30k - Plaleletpheresis ordered Leukemia WBC [address] Garcia, Hem/Onc consult: help appreciated - f/u reccs Hydrea 500mg PO Daily HTN Hypotensive on admission HCTZ/Triamter 25/37.5mg PO Daily Metoprolol 25mg PO Daily Will monitor Hyponatremia Na 129 on AM labs NS @ 50cc/hr Hyperkalemia Resolved 5.3 on admission, 4.1 today Dyslipidemia Zetia 10mg PO Daily Prophylaxis Protonix 40mg PO Daily Hold heparin SCDs C/I due to leg swelling Jose Guadalupe Fan PGY-2 All medical management per Dr. Mosley
[2017-05-01 16:27] VITALS: RESP 20
--- NOTE | 2017-05-01 18:51 | CP.PCM.CON ---
History of Present Illness - History of Present Illness History of Present Illness: 82 y/o male w/ significant pmhx of leukemia who present complaining of swelling to the perineum/gayla-rectal area x 1 week. Patient denies any pain to the area unless touched. Patient denies f/c. the swelling was noticed 1 week ago and progressively gotten larger. The swelling was associated with redness. No drainage. No diarrhea or constipation. Denies problems like this in the past. Denies trauma to the area. ID consulted for antibiotics Needs I and D pending Heme Onc eval PMH: Leukemia, HTN, HLD PSH: bone marrow biopsy Social: denie ETOH, tobacco, or drug abuse Review of Systems - Review of Systems All systems: reviewed and no additional remarkable complaints except - Constitutional Constitutional: As Per HPI - EENT Eyes: absent: As Per HPI, Blind Spots, Blurred Vision, Change in Vision, Decreased Night Vision, Diplopia, Discharge, Dry Eye, Exophthalmos, Floaters, Irritation, Itchy Eyes, Loss of Peripheral Vision, Pain, Photophobia, Requires Corrective Lenses, Sees Flashes, Spots in Vision, Tunnel Vision, Other Visual Disturbances, Loss of Vision, Other Ears: absent: As Per HPI, Decreased Hearing, Ear Discharge, Ear Pain, Tinnitus, Abnormal Hearing, Disequilibrium, Dizziness, Other Nose/Mouth/Throat: absent: As Per HPI, Epistaxis, Nasal Congestion, Nasal Discharge, Nasal Obstruction, Nasal Trauma, Nose Pain, Post Nasal Drip, Sinus Pain, Sinus Pressure, Bleeding Gums, Change in Voice, Dental Pain, Dry Mouth, Dysphagia, Halitosis, Hoarsness, Lip Swelling, Mouth Lesions, Mouth Pain, Odynophagia, Sore Throat, Throat Swelling, Tongue Swelling, Facial Pain, Neck Pain, Neck Mass, Other - Cardiovascular Cardiovascular: absent: As Per HPI, Acrocyanosis, Chest Pain, Chest Pain at Rest , Chest Pain with Activity, Claudication, Diaphoresis, Dyspnea, Dyspnea on Exertion, Edema, Irregular Heart Rhythm, Pain Radiating to Arm/Neck/Jaw, Leg Edema, Leg Ulcers, Lightheadedness, Orthopnea, Palpitations, Paroxysmal Nocturnal Dyspnea, Pedal Edema, Radiating Pain, Rapid Heart Rate, Slow Heart Rate, Syncope, Other - Respiratory Respiratory: absent: As Per HPI, Cough, Dyspnea, Hemoptysis, Dyspnea on Exertion , Wheezing, Snoring, Stridor, Pain on Inspiration, Chest Congestion, Excessive Mucous Production, Change in Mucous Color, Pain with Coughing, Other - Gastrointestinal Gastrointestinal: As Per HPI - Genitourinary Genitourinary: absent: As Per HPI, Change in Urinary Stream, Difficulty Urinating, Dysuria, Flank Pain, Hematuria, Pyuria, Nocturia, Urinary Incontinence, Urinary Frequency, Urinary Hesitance, Urinary Urgency, Voiding Freq/Small Amts, Freq UTI, Hx Renal/Bladder Calculi, Hx /Renal Surgery, Bladder Distension, Other - Musculoskeletal Musculoskeletal: As Per HPI - Integumentary Integumentary: As Per HPI, Skin Pain, Wounds - Neurological Neurological: absent: As Per HPI, Abnormal Gait, Abnormal Hearing, Abnormal Movements, Abnormal Speech, Behavioral Changes, Burning Sensations, Confusion, Convulsions, Disequilibrium, Dizziness, Numbness, Focal Weakness, Frequent Falls , Headaches, Lack of Coordination, Loss of Vision, Memory Loss, Paresthesias, Radicular Pain, Restless Legs, Sensory Deficit, Syncope, Tingling, Tremor, Vertigo, Weakness, Other Visual Disturbances, Other - Psychiatric Psychiatric: absent: As Per HPI, Abnormal Sleep Pattern, Anhedonia, Anxiety, Auditory Hallucinations, Behavioral Changes, Change in Appetite, Change in Libido, Confusion, Depression, Difficulty Concentrating, Hallucinations, Homicidal Ideation, Hopelessness, Irritability, Memory Loss, Mood Swings, Panic Attacks, Paranoia, Suicidal Ideation, Visual Hallucinations, Tactile Hallucinations, Other - Endocrine Endocrine: absent: As Per HPI, Change in Body Appearance, Change in Libido, Cold Intolorance, Deepening of Voice, Excessive Sweating, Fatigue, Flushing, Heat Intolorance, Increase in Ring/Shoe/Hat Size, Palpitations, Polydipsia, Polyphagia, Polyuria, Other - Hematologic/Lymphatic Hematologic: absent: As Per HPI, Easy Bleeding, Easy Bruising, Lymphadenopathy, Other Past Patient History - Past Medical History & Family History Past Medical History?: Yes - Past Social History Smoking Status: Never Smoked - CARDIAC Hx Hypercholesterolemia: Yes Hx Hypertension: Yes - PULMONARY Hx Respiratory Disorders: No - NEUROLOGICAL Hx Neurological Disorder: No - HEENT Hx HEENT Problems: No - RENAL Hx Chronic Kidney Disease: No - ENDOCRINE/METABOLIC Hx Endocrine Disorders: No - HEMATOLOGICAL/ONCOLOGICAL Hx Anemia: Yes Hx Leukemia: Yes - INTEGUMENTARY Hx Dermatological Problems: No - MUSCULOSKELETAL/RHEUMATOLOGICAL Hx Musculoskeletal Disorders: No Hx Falls: No - GASTROINTESTINAL Hx Gastrointestinal Disorders: No - GENITOURINARY/GYNECOLOGICAL Hx Genitourinary Disorders: No - PSYCHIATRIC Hx Psychophysiologic Disorder: No Hx Substance Use: No - SURGICAL HISTORY Hx Surgeries: No - ANESTHESIA Hx Anesthesia: No Meds Allergies/Adverse Reactions: Allergies Allergy/AdvReac Type Severity Reaction Status Date / Time No Known Allergies Allergy Verified 02/28/17 10:08 - Medications Medications: Current Medications Acetaminophen (Tylenol 325mg Tab) 650 mg PO Q8H PRN PRN Reason: Pain, moderate (4-7) Ezetimibe (Zetia) 10 mg PO DAILY [facility] Last Admin: 05/01/17 10:37 Dose: 10 mg Hydroxyurea (Hydrea) 500 mg PO DAILY [facility] Last Admin: 05/01/17 10:29 Dose: 500 mg Sodium Chloride (Sodium Chloride 0.9%) 1,000 mls @ 50 mls/hr IV .Q20H [facility] Last Admin: 04/30/17 22:50 Dose: 50 mls/hr Piperacillin Sod/Tazobactam Sod (Zosyn 2.25 Gm Iv Premix) 2.25 gm in 50 mls @ 100 mls/hr IVPB Q6H [facility] Last Admin: 05/01/17 17:41 Dose: 100 mls/hr Metoprolol Succinate (Toprol Xl) 25 mg PO DAILY [facility] Last Admin: 05/01/17 10:35 Dose: 25 mg Pantoprazole Sodium (Protonix Ec Tab) 40 mg PO DAILY [facility] Last Admin: 05/01/17 10:36 Dose: 40 mg Triamterene/HCTZ (Dyazide 25 Mg-37.5 Mg) 1 cap PO DAILY [facility] Last Admin: 05/01/17 10:36 Dose: 1 cap Vitamin B Complex/Vitamin C (Berocca) 1 tab PO DAILY [facility] Last Admin: 05/01/17 10:37 Dose: 1 tab Physical Exam - Constitutional Appears: Non-toxic, Cachectic, Chronically Ill - Head Exam Head Exam: ATRAUMATIC, NORMAL INSPECTION, NORMOCEPHALIC - Eye Exam Eye Exam: EOMI, PERRL. absent: Scleral icterus - ENT Exam ENT Exam: Mucous Membranes Dry, Normal External Ear Exam, Normal Oropharynx - Neck Exam Neck exam: Negative for: Lymphadenopathy - Respiratory Exam Respiratory Exam: Decreased Breath Sounds, Clear to Auscultation Bilateral - Cardiovascular Exam Cardiovascular Exam: REGULAR RHYTHM, +S1, +S2 - GI/Abdominal Exam GI & Abdominal Exam: Diminished Bowel Sounds, Soft. absent: Tenderness - Rectal Exam Rectal Exam: Deferred - Exam Exam: NORMAL INSPECTION - Extremities Exam Extremities exam: Positive for: pedal pulses present. Negative for: calf tenderness, pedal edema, tenderness - Back Exam Back exam: absent: CVA tenderness (L), CVA tenderness (R) - Neurological Exam Neurological exam: Alert, CN II-XII Intact, Oriented x3, Reflexes Normal - Psychiatric Exam Psychiatric exam: Depressed - Skin Skin Exam: Dry Additional comments: inferior left gluteal abscess, close proximity to perineum, measuring 2x2 cm with mid area of fluctuance. minimal tenderness to palpation. Results - Vital Signs Recent Vital Signs: Last Vital Signs Temp 97.9 F 05/01/17 17:00 Pulse 70 05/01/17 17:00 Resp 20 05/01/17 17:00 BP 110/69 05/01/17 17:00 Pulse Ox 95 05/01/17 16:00 - Labs Result Diagrams: 05/01/17 07:41 05/01/17 07:41 Labs: Laboratory Results - last 24 hr 05/01/17 05/01/17 05/01/17 07:41 07:41 11:51 WBC 155.1 H* RBC 3.19 L Hgb 9.2 L Hct 28.1 L MCV 88.3 MCH 28.7 MCHC 32.5 L RDW 17.6 H Plt Count 26 L* MPV 8.8 Sodium 129 L Potassium 4.1 Chloride 99 Carbon Dioxide 18 L Anion Gap 16 BUN 79 H Creatinine 2.6 H Est GFR ( Amer) 29 Est GFR (Non-Af Amer) 24 Random Glucose 92 Calcium 7.8 L Phosphorus 6.1 H Magnesium 2.4 H Total Bilirubin 0.8 AST 48 ALT 36 Alkaline Phosphatase 82 Total Protein 6.3 Albumin 2.9 L Globulin 3.4 Albumin/Globulin Ratio 0.9 L Blood Type B POSITIVE Antibody Screen Negative Assessment & Plan (1) Leukemia Status: Acute (2) Perirectal abscess Status: Acute (3) Thrombocytopenia Status: Acute (4) AML (acute myeloblastic leukemia) Status: Acute (5) Anemia Status: Acute (6) Leukocytosis Status: Acute - Assessment and Plan (Free Text) Assessment: cont iv rx surgical follow up
[2017-05-01] MEDS: Sodium Chloride 0.9% 1,000 ML IV SCH (21:28)
--- NOTE | 2017-05-01 23:41 | CP.PCM.PN ---
Subjective - Date & Time of Evaluation Date of Evaluation: 05/01/17 Objective - Vital Signs/Intake and Output Vital Signs (last 24 hours): Temp Pulse Resp BP Pulse Ox 97.9 F 70 20 110/69 95 05/01/17 17:00 05/01/17 17:00 05/01/17 17:00 05/01/17 17:00 05/01/17 16:00 Intake and Output: 05/01/17 05/02/17 18:59 06:59 Intake Total 1820 Output Total 400 Balance 1420 - Medications Medications: Current Medications Acetaminophen (Tylenol 325mg Tab) 650 mg PO Q8H PRN PRN Reason: Pain, moderate (4-7) Ezetimibe (Zetia) 10 mg PO DAILY [facility] Last Admin: 05/01/17 10:37 Dose: 10 mg Hydroxyurea (Hydrea) 500 mg PO DAILY [facility] Last Admin: 05/01/17 10:29 Dose: 500 mg Sodium Chloride (Sodium Chloride 0.9%) 1,000 mls @ 50 mls/hr IV .Q20H [facility] Last Admin: 05/01/17 21:28 Dose: 50 mls/hr Piperacillin Sod/Tazobactam Sod (Zosyn 2.25 Gm Iv Premix) 2.25 gm in 50 mls @ 100 mls/hr IVPB Q6H [facility] Last Admin: 05/01/17 17:41 Dose: 100 mls/hr Metoprolol Succinate (Toprol Xl) 25 mg PO DAILY [facility] Last Admin: 05/01/17 10:35 Dose: 25 mg Pantoprazole Sodium (Protonix Ec Tab) 40 mg PO DAILY [facility] Last Admin: 05/01/17 10:36 Dose: 40 mg Triamterene/HCTZ (Dyazide 25 Mg-37.5 Mg) 1 cap PO DAILY [facility] Last Admin: 05/01/17 10:36 Dose: 1 cap Vitamin B Complex/Vitamin C (Berocca) 1 tab PO DAILY [facility] Last Admin: 05/01/17 10:37 Dose: 1 tab - Labs Labs: 05/01/17 07:41 05/01/17 07:41 PT 15.0 SECONDS (9.7-12.2) H 04/30/17 17:04 INR 1.3 04/30/17 17:04 APTT 29 SECONDS (21-34) 04/30/17 17:04
[2017-05-02] MEDS: Piperacill/Tazo 2.25gm in Dex 2.25 GM/50 ML BAG IVPB SCH ×2 (05:20→12:35)
[2017-05-02 07:10] LABS: BASO # 0.5 K/uL (0.0-0.2); BASO % 0.3 % (0.0-2.0); EOS % 0.6 % (0.0-4.0); HEMATOCRIT 27.3 % (35.0-51.0); LYMPH # 2.7 K/uL (1.0-4.3); LYMPH % 1.6 % (20.0-40.0); MEAN CELL VOLUME 88.5 fL (80.0-94.0); MEAN CORPUSCULAR HEMOGLOBIN 28.7 pg (27.0-31.0); MEAN CORPUSCULAR HGB CONC 32.4 g/dL (33.0-37.0); MEAN PLATELET VOLUME 8.2 fL (7.2-11.7); MONO # 89.4 K/uL (0.0-0.8); MONO % 53.2 % (0.0-10.0); RED CELL DISTRIBUTION WIDTH 17.9 % (11.5-14.5)
[2017-05-02 07:22] LABS: PLATELET COUNT 35 K/uL (130-400); WHITE BLOOD COUNT 168.1 K/uL (4.8-10.8)
[2017-05-02 08:00] LABS: POTASSIUM 4.1 mmol/L (3.6-5.2)
[2017-05-02 08:02] LABS: ALB/GLOB RATIO 1.1 (1.0-2.1); BILIRUBIN,TOTAL 0.7 mg/dL (0.2-1.3); TOTAL PROTEIN 5.9 g/dL (6.3-8.3)
[2017-05-02 08:03] LABS: CALCIUM 7.7 mg/dl (8.6-10.4); MAGNESIUM 2.4 mg/dL (1.6-2.3)
[2017-05-02 08:43] VITALS: BP 102/66; PULSE 78; TEMP 96.4; O2SAT 96
[2017-05-02] MEDS: Vitamin B Complex/Vitamin C Tab PO SCH (09:50)
[2017-05-02] MEDS: Metoprolol Succinate 25 mg XL Tab PO SCH (09:50)
[2017-05-02] MEDS: Pantoprazole 40 mg EC Tab PO SCH (09:50)
[2017-05-02] MEDS: hydroCHLOROthiazide-Triamterene 25 mg-37.5 mg Cap UD PO SCH (09:51)
[2017-05-02 10:50] LABS: BLASTS 15 % (0-0); METAMYELOCYTE 6 % (0-0); MYELOCYTE 4 % (0-0); NEUTROPHIL 36 % (50-75); NUCLEATED RED BLOOD CELL 1 % (0-0); REACTIVE LYMPHOCYTES 2 % (0-0); TOTAL CELLS COUNTED 100
--- NOTE | 2017-05-02 11:04 | PCM.PROC ---
- Incision & Drainage Of Abscess Anesthesia: Lidocaine 1% Prep Used: Betadine Procedure: Incised W/Scalpel Blade#: (11), Drained Pus, Irrigated Cavity W/ Saline, Probed To Break Up Loculations, Packed W/Gauze, Cultures Obtained And Sent To Lab
--- NOTE | 2017-05-02 11:47 | CP.PCM.PN ---
Subjective - Date & Time of Evaluation Date of Evaluation: 05/02/17 Time of Evaluation: 11:41 - Subjective Subjective: Surgery Progress Note for Dr. Mehta HPI: Patient seen and examined at bedside. patient doing well with no complaints at this time. Decreased pain around I/D site. Objective - Vital Signs/Intake and Output Vital Signs (last 24 hours): Temp Pulse Resp BP Pulse Ox 96.4 F L 78 20 102/66 96 05/02/17 08:42 05/02/17 08:42 05/02/17 08:42 05/02/17 08:42 05/02/17 08:42 Intake and Output: 05/02/17 05/02/17 06:59 18:59 Intake Total 720 Balance 720 - Medications Medications: Current Medications Acetaminophen (Tylenol 325mg Tab) 650 mg PO Q8H PRN PRN Reason: Pain, moderate (4-7) Ezetimibe (Zetia) 10 mg PO DAILY [facility] Last Admin: 05/02/17 09:50 Dose: 10 mg Hydroxyurea (Hydrea) 500 mg PO DAILY [facility] Last Admin: 05/02/17 09:51 Dose: 500 mg Sodium Chloride (Sodium Chloride 0.9%) 1,000 mls @ 50 mls/hr IV .Q20H [facility] Last Admin: 05/01/17 21:28 Dose: 50 mls/hr Piperacillin Sod/Tazobactam Sod (Zosyn 2.25 Gm Iv Premix) 2.25 gm in 50 mls @ 100 mls/hr IVPB Q6H [facility] Last Admin: 05/02/17 05:20 Dose: 100 mls/hr Metoprolol Succinate (Toprol Xl) 25 mg PO DAILY [facility] Last Admin: 05/02/17 09:50 Dose: 25 mg Pantoprazole Sodium (Protonix Ec Tab) 40 mg PO DAILY [facility] Last Admin: 05/02/17 09:50 Dose: 40 mg Triamterene/HCTZ (Dyazide 25 Mg-37.5 Mg) 1 cap PO DAILY [facility] Last Admin: 05/02/17 09:51 Dose: 1 cap Vitamin B Complex/Vitamin C (Berocca) 1 tab PO DAILY [facility] Last Admin: 05/02/17 09:50 Dose: 1 tab - Labs Labs: 05/02/17 07:04 05/02/17 07:04 PT 15.0 SECONDS (9.7-12.2) H 04/30/17 17:04 INR 1.3 04/30/17 17:04 APTT 29 SECONDS (21-34) 04/30/17 17:04 - Constitutional Appears: Well, Non-toxic, No Acute Distress - Head Exam Head Exam: ATRAUMATIC, NORMAL INSPECTION, NORMOCEPHALIC - Eye Exam Eye Exam: EOMI - ENT Exam ENT Exam: Mucous Membranes Moist - Respiratory Exam Respiratory Exam: Clear to Ausculation Bilateral, NORMAL BREATHING PATTERN - Cardiovascular Exam Cardiovascular Exam: REGULAR RHYTHM - GI/Abdominal Exam GI & Abdominal Exam: Soft, Normal Bowel Sounds. absent: Distended, Tenderness - Rectal Exam Additional comments: I/D site remains patent. Not currently draining. Packing in place. Dressing clean, dry and intact - Extremities Exam Extremities Exam: absent: Joint Swelling, Tenderness - Back Exam Back Exam: absent: CVA tenderness (L), CVA tenderness (R) - Neurological Exam Neurological Exam: Alert, Awake, Oriented x3 - Psychiatric Exam Psychiatric exam: Normal Affect, Normal Mood - Skin Skin Exam: Dry, Intact, Normal Color, Warm Assessment and Plan - Assessment and Plan (Free Text) Assessment: 82M with a perirectal abscess Plan: * packing changed today * No surgical intervention needed at this time * Follow up in Dr. Khalil office 3-5 days, please call to make an appointment * Further reccs per Dr. Janine Lou PGY1
--- NOTE | 2017-05-02 13:32 | CP.PCM.PN ---
Subjective - Date & Time of Evaluation Date of Evaluation: 05/02/17 Time of Evaluation: 13:31 - Subjective Subjective: Alert, oriented, no acute pain or distress. Objective - Vital Signs/Intake and Output Vital Signs (last 24 hours): Temp Pulse Resp BP Pulse Ox 96.4 F L 78 20 102/66 96 05/02/17 08:42 05/02/17 08:42 05/02/17 08:42 05/02/17 08:42 05/02/17 08:42 Intake and Output: 05/02/17 05/02/17 06:59 18:59 Intake Total 720 Balance 720 - Medications Medications: Current Medications Acetaminophen (Tylenol 325mg Tab) 650 mg PO Q8H PRN PRN Reason: Pain, moderate (4-7) Ezetimibe (Zetia) 10 mg PO DAILY [facility] Last Admin: 05/02/17 09:50 Dose: 10 mg Hydroxyurea (Hydrea) 500 mg PO DAILY [facility] Last Admin: 05/02/17 09:51 Dose: 500 mg Sodium Chloride (Sodium Chloride 0.9%) 1,000 mls @ 50 mls/hr IV .Q20H [facility] Last Admin: 05/01/17 21:28 Dose: 50 mls/hr Piperacillin Sod/Tazobactam Sod (Zosyn 2.25 Gm Iv Premix) 2.25 gm in 50 mls @ 100 mls/hr IVPB Q6H [facility] Last Admin: 05/02/17 12:35 Dose: 100 mls/hr Metoprolol Succinate (Toprol Xl) 25 mg PO DAILY [facility] Last Admin: 05/02/17 09:50 Dose: 25 mg Pantoprazole Sodium (Protonix Ec Tab) 40 mg PO DAILY [facility] Last Admin: 05/02/17 09:50 Dose: 40 mg Triamterene/HCTZ (Dyazide 25 Mg-37.5 Mg) 1 cap PO DAILY [facility] Last Admin: 05/02/17 09:51 Dose: 1 cap Vitamin B Complex/Vitamin C (Berocca) 1 tab PO DAILY [facility] Last Admin: 05/02/17 09:50 Dose: 1 tab - Labs Labs: 05/02/17 07:04 05/02/17 07:04 PT 15.0 SECONDS (9.7-12.2) H 04/30/17 17:04 INR 1.3 04/30/17 17:04 APTT 29 SECONDS (21-34) 04/30/17 17:04 Assessment and Plan - Assessment and Plan (Free Text) Assessment: patient is seen and examined. Alert, awake, seen by DR Jorge Alberto Mosley, plan to discharge home on po augmentin and is advised to follow up with DR Liang in his office. No distress, family at the bedside.
[2017-05-02] MEDS: Sodium Chloride 0.9% 1,000 ML IV SCH (13:34)
== END 2017-05-02 14:10 | disposition home or self-care (01) | DRG 603 ==
LOC: C.ER 16:11 → C.9E 17:55 → C.3T 18:41
PROVIDERS: ADMIT Internal Medicine Nephrology; ATTEND Internal Medicine Nephrology
PROC: 30233R1 Transfusion of Nonautologous Platelets into Peripheral Vein, Percutaneous Approach (ICD-10-PCS; 2017-05-01)
PROC: 0H98XZZ Drainage of Buttock Skin, External Approach (ICD-10-PCS; principal; 2017-05-02)
DX: L02.31 Cutaneous abscess of buttock (principal); L02.215 Cutaneous abscess of perineum; I95.9 Hypotension, unspecified; C95.90 Leukemia, unspecified not having achieved remission; D69.6 Thrombocytopenia, unspecified; E87.5 Hyperkalemia; E87.1 Hypo-osmolality and hyponatremia; I10 Essential (primary) hypertension; E78.00 Pure hypercholesterolemia, unspecified; E78.5 Hyperlipidemia, unspecified; M17.12 Unilateral primary osteoarthritis, left knee

== ENCOUNTER 2017-05-26 19:41 | Inpatient (IN) | payer MEDICARE, OTHER ==
[2017-05-26 19:41] VITALS: BMI 24.2
[2017-05-26] MEDS ORDERED: Albuterol-Ipratrop 3 mg / 0.5 (3 ml) UD INH STA (20:03)
[2017-05-26 20:24] LABS: HEMATOCRIT 23.1 % (35.0-51.0); MEAN CELL VOLUME 89.1 fL (80.0-94.0); MEAN CORPUSCULAR HEMOGLOBIN 27.2 pg (27.0-31.0); MEAN CORPUSCULAR HGB CONC 30.5 g/dL (33.0-37.0); MEAN PLATELET VOLUME 11.1 fL (7.2-11.7); RED CELL DISTRIBUTION WIDTH 18.8 % (11.5-14.5)
[2017-05-26 20:28] LABS: PLATELET COUNT 18 K/uL (130-400); WHITE BLOOD COUNT 223.2 K/uL (4.8-10.8)
[2017-05-26 20:36] LABS: INR 1.4
[2017-05-26 20:56] LABS: TROPONIN I 0.438 ng/mL (0.00-0.120)
[2017-05-26 20:57] LABS: BILIRUBIN,TOTAL 1.4 mg/dL (0.2-1.3); CALCIUM 7.3 mg/dl (8.6-10.4); POTASSIUM 5.1 mmol/L (3.6-5.2); TOTAL PROTEIN 5.9 g/dL (6.3-8.3)
--- NOTE | 2017-05-26 21:13 | C.PDOC ---
History Of Present Illness 82 year old male is brought to the ED by his family from home c/o SOB and CP that occurred for the last 3 days. Patient was recently seen by his oncologist Dr. Garcia and was given blood transfusion as an outpatient is currently being treated for AML. Patient and family were objective to comfort care. Time Seen by Provider: 05/26/17 19:56 Chief Complaint (Nursing): Shortness Of Breath History Per: Patient, Family History/Exam Limitations: no limitations Onset/Duration Of Symptoms: Hrs Current Symptoms Are (Timing): Still Present Severity: None Quality: "Pain" Associated Symptoms: denies: Syncope Modifying Factors: None Exacerbating Factors: None Alleviating Factors: None Recent travel outside of the [place]: No Additional History Per: Patient, Family Past Medical History Reviewed: Historical Data, Nursing Documentation, Vital Signs Vital Signs: Last Vital Signs Temp 97.6 F 05/26/17 23:10 Pulse 76 05/26/17 23:10 Resp 20 05/26/17 23:10 BP 91/53 L 05/26/17 23:10 Pulse Ox 98 05/26/17 23:10 - Medical History PMH: Anemia, Arthritis (L KNEE/L ANKLE/FOOT), HTN, Hypercholesterolemia, Malignancy (Leukemia) Denies: Chronic Kidney Disease Surgical History: No Surg Hx - [facility] Procedures DRAINAGE OF BUTTOCK SKIN, EXTERNAL APPROACH (04/30/17) EXTRACTION OF ILIAC BONE MARROW, PERC APPROACH, DIAGN (02/09/17) TRANSFUSE NONAUT PLATELETS IN PERIPH VEIN, PERC (04/30/17) TRANSFUSE NONAUT RED BLOOD CELLS IN PERIPH VEIN, PERC (02/09/17) Family History: States: Unknown Family Hx - Social History Hx Alcohol Use: No Hx Substance Use: No - Immunization History Hx Influenza Vaccination: Yes Hx Pneumococcal Vaccination: No Review Of Systems Constitutional: Negative for: Fever, Chills Cardiovascular: Positive for: Chest Pain. Negative for: Palpitations Respiratory: Positive for: Shortness of Breath. Negative for: Cough Gastrointestinal: Negative for: Nausea, Vomiting, Abdominal Pain Genitourinary: Negative for: Incontinence Neurological: Negative for: Weakness, Numbness Physical Exam - Physical Exam Appears: Chronically Ill, Other (Elderly) Skin: Normal Color, Warm, Dry Head: Atraumatic, Normacephalic Oral Mucosa: Moist Neck: Normal ROM, Supple Chest: Symmetrical Cardiovascular: Rhythm Regular, No Murmur Respiratory: Normal Breath Sounds, No Accessory Muscle Use, No Rales, No Rhonchi , No Wheezing Gastrointestinal/Abdominal: Soft, No Tenderness Extremity: Normal ROM, Pedal Edema (Dependent) Neurological/Psych: Oriented x3, Normal Speech, Normal Cognition ED Course And Treatment - Laboratory Results Result Diagrams: 05/26/17 20:12 05/26/17 20:12 O2 Sat by Pulse Oximetry: 96 (On RA) Pulse Ox Interpretation: Normal Medical Decision Making Medical Decision Making: very ill appearing with CP, WBC 223 with untreated AML now NSTEMI and thrombocytopenia Unable to anticoagulate for ACS due to thrombocytopenia d/w Dr. Zeferino Garcia- Heme/Onc, in ED Recommends, hydration and transfuse PRBC's x 1 No abx indicated. DNR d/w family buy Dr. Garcia and myself, DNR order and paper consent signed by this MD and family and nurse witness. 2100: d/w Dr. Tito Mosley- PMD- ok to tele Adm Disposition Doctor Will See Patient In The: Hospital Counseled Patient/Family Regarding: Studies Performed, Diagnosis - Disposition Disposition: HOSPITALIZED Disposition Time: 21:25 Condition: CRITICAL - Clinical Impression Clinical Impression: AML (acute myeloblastic leukemia), NSTEMI (non-ST elevated myocardial infarction), Thrombocytopenia, Chest pain - Scribe Statement The provider has reviewed the documentation as recorded by the Scribe Andrew Mahoney All medical record entries made by the Scribe were at my direction and personally dictated by me. I have reviewed the chart and agree that the record accurately reflects my personal performance of the history, physical exam, medical decision making, and the department course for this patient. I have also personally directed, reviewed, and agree with the discharge instructions and disposition.
--- NOTE | 2017-05-26 22:52 | CP.PCM.CON ---
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 Per the patients family, he has been bruising very easily and having intermittent episodes of epistaxis. Today he became more lethargic and weak and his family brought him to the hospital. Review of his blood work and peripheral smear shows the patient is in blast crisis with anemia, and severe thrombocytopenia. I have had an at length discussion with the patients family about the terminal nature of his worsening disease. They wish for DNR/DNI and comfort measures. Case discussed with Dr. Moore in the ED and Dr. Mosley his PMD. Past medical history: HTN, HL, AML Past surgical history: None Family history: Denies hematologic and oncologic problems Social history: Denies tobacco, alcohol, and illicit drug use. Allergies: NKA Review of systems: All remaining review of systems including HEENT, cardiovascular, respiratory, gastrointestinal, genitourinary, musculoskeletal, dermatologic, neurologic, and psychiatric are negative unless mentioned in the HPI. Past Patient History - Past Medical History & Family History Past Medical History?: Yes - Past Social History Smoking Status: Never Smoked - CARDIAC Hx Hypercholesterolemia: Yes Hx Hypertension: Yes - PULMONARY Hx Respiratory Disorders: No - NEUROLOGICAL Hx Neurological Disorder: No - HEENT Hx HEENT Problems: No - RENAL Hx Chronic Kidney Disease: No - ENDOCRINE/METABOLIC Hx Endocrine Disorders: No - HEMATOLOGICAL/ONCOLOGICAL Hx Anemia: Yes - INTEGUMENTARY Hx Dermatological Problems: No - MUSCULOSKELETAL/RHEUMATOLOGICAL Hx Arthritis: Yes (L KNEE/L ANKLE/FOOT) - GASTROINTESTINAL Hx Gastrointestinal Disorders: No - GENITOURINARY/GYNECOLOGICAL Hx Genitourinary Disorders: No - PSYCHIATRIC Hx Substance Use: No - SURGICAL HISTORY Hx Surgeries: No - ANESTHESIA Hx Anesthesia: No Meds Allergies/Adverse Reactions: Allergies Allergy/AdvReac Type Severity Reaction Status Date / Time No Known Allergies Allergy Verified 05/26/17 19:52 Physical Exam - Constitutional Appears: Cachectic, Chronically Ill - Head Exam Head Exam: ATRAUMATIC - Eye Exam Eye Exam: Normal appearance - ENT Exam ENT Exam: Mucous Membranes Dry - Respiratory Exam Respiratory Exam: NORMAL BREATHING PATTERN - Cardiovascular Exam Cardiovascular Exam: +S1, +S2 - GI/Abdominal Exam GI & Abdominal Exam: Normal Bowel Sounds - Extremities Exam Extremities exam: Positive for: normal inspection - Neurological Exam Neurological exam: Altered - Skin Skin Exam: Warm Results - Vital Signs Recent Vital Signs: Last Vital Signs Temp 96.1 F L 05/26/17 22:33 Pulse 102 H 05/26/17 22:33 Resp 19 05/26/17 22:33 BP 98/60 L 05/26/17 22:33 Pulse Ox 98 05/26/17 22:33 - Labs Result Diagrams: 05/26/17 20:12 05/26/17 20:12 Labs: Laboratory Results - last 24 hr 05/26/17 05/26/17 05/26/17 20:03 20:12 20:12 WBC 223.2 H* RBC 2.59 L Hgb 7.1 L Hct 23.1 L MCV 89.1 MCH 27.2 MCHC 30.5 L RDW 18.8 H Plt Count 18 L* D MPV 11.1 Neut % (Auto) [place] Core [place] Lymph % (Auto) Sand [place] Operator Core Sand [place] % (Auto) [place] Operator Core Sand Eos % (Auto) [place] Operator Core Sand Baso % (Auto) [place] Operator Core Sand Neut # [place] Operator Core Sand Lymph # [place] Operator Core Sand [place] # [place] Operator Core Sand Eos # [place] Operator Core Sand Baso # [place] Operator Core Sand Total Counted Cancelled Neutrophils % (Manual) Cancelled Band Neutrophils % Cancelled Lymphocytes % (Manual) Cancelled Reactive Lymphs % Cancelled Monocytes % (Manual) Cancelled Eosinophils % (Manual) Cancelled Basophils % (Manual) Cancelled Metamyelocytes % Cancelled Myelocytes % Cancelled Promyelocytes % Cancelled Blast Cells % Cancelled Plasma Cell % (Manual) Cancelled Nucleated RBC % Cancelled Hypersegmented Polys Cancelled Smudge Cells Cancelled Toxic Granulation Cancelled Dohle Bodies Cancelled [place]ayana Rods Cancelled Platelet Estimate Cancelled Plt Clumps, EDTA Cancelled Large Platelets Cancelled Giant Platelets Cancelled RBC Morphology Cancelled Polychromasia Cancelled Hypochromasia (manual) Cancelled Poikilocytosis (manual Cancelled Basophilic Stippling Cancelled Anisocytosis (manual) Cancelled Microcytosis (manual) Cancelled Macrocytosis (manual) Cancelled Spherocytes Cancelled Sickle Cells Cancelled Target Cells Cancelled Tear Drop Cells Cancelled Ovalocytes Cancelled Stomatocytes Cancelled Helmet Cells Cancelled [place] Bodies Cancelled Carmenza Cells Cancelled Acanthocytes (Spur) Cancelled Rouleaux Cancelled Schistocytes Cancelled PT 15.5 H INR 1.4 APTT 35 H D-Dimer, Quantitative 1162 H Sodium Potassium Chloride Carbon Dioxide Anion Gap Creatinine Est GFR ( Amer) Est GFR (Non-Af Amer) Random Glucose Calcium Total Bilirubin AST ALT Alkaline Phosphatase Troponin I NT-Pro-B Natriuret Pep Total Protein Albumin Globulin Albumin/Globulin Ratio Influenza Typ A,B (EIA) Negative for flu a/b Blood Type Antibody Screen 05/26/17 05/26/17 20:12 20:36 WBC RBC Hgb Hct MCV MCH MCHC RDW Plt Count MPV Neut % (Auto) Lymph % (Auto) [place] % (Auto) Eos % (Auto) Baso % (Auto) Neut # Lymph # [place] # Eos # Baso # Total Counted Neutrophils % (Manual) Band Neutrophils % Lymphocytes % (Manual) Reactive Lymphs % Monocytes % (Manual) Eosinophils % (Manual) Basophils % (Manual) Metamyelocytes % Myelocytes % Promyelocytes % Blast Cells % Plasma Cell % (Manual) Nucleated RBC % Hypersegmented Polys Smudge Cells Toxic Granulation Dohle Bodies Nayana Rods Platelet Estimate Plt Clumps, EDTA Large Platelets Giant Platelets RBC Morphology Polychromasia Hypochromasia (manual) Poikilocytosis (manual Basophilic Stippling Anisocytosis (manual) Microcytosis (manual) Macrocytosis (manual) Spherocytes Sickle Cells Target Cells Tear Drop Cells Ovalocytes Stomatocytes Helmet Cells [place] Bodies [place] Cells Acanthocytes (Spur) Rouleaux Schistocytes PT INR APTT D-Dimer, Quantitative Sodium 127 L Potassium 5.1 Chloride 101 Carbon Dioxide 15 L Anion Gap 16 Creatinine 3.5 H Est GFR ( Amer) 20 Est GFR (Non-Af Amer) 17 Random Glucose 116 H Calcium 7.3 L Total Bilirubin 1.4 H AST 73 H D ALT 79 H D Alkaline Phosphatase 153 H D Troponin I 0.4380 H* NT-Pro-B Natriuret Pep 16848 H Total Protein 5.9 L Albumin 2.9 L Globulin 3.0 Albumin/Globulin Ratio 1.0 Influenza Typ A,B (EIA) Blood Type B POSITIVE Antibody Screen Negative Assessment & Plan (1) AML (acute myeloblastic leukemia) Assessment and Plan: in blast crisis DNR/DNI comfort measures as discussed with family 1U PRBC and IV fluids Status: Acute (2) Ecchymosis Assessment and Plan: secondary to thrombocytopenia Thank you for this interesting consult. Status: Acute
[2017-05-27] MEDS ORDERED: Piperacill/Tazo 3.375gm in Dex 3.375 GM/50 ML BAG IVPB SCH (04:00)
--- NOTE | 2017-05-27 08:09 | RAD ---
PROCEDURE: CHEST RADIOGRAPH, 1 VIEW HISTORY: SOB COMPARISON: Portable chest 03/26/2017. FINDINGS: LUNGS: Limited airspace disease developing in the left base with the right lung appearing clear. Inspiratory volume is diminished. PLEURA: No pneumothorax or pleural fluid seen. CARDIOVASCULAR: Normal. OSSEOUS STRUCTURES: No significant abnormalities. VISUALIZED UPPER ABDOMEN: Unremarkable. OTHER FINDINGS: None. IMPRESSION: Limited left basilar airspace disease identified. Diminished inspiratory volume.
[2017-05-27 09:43] LABS: EOS # 4.5 K/uL (0.0-0.7); LYMPH # 26.7 K/uL (1.0-4.3); MONO # 64.7 K/uL (0.0-0.8)
[2017-05-27 09:49] LABS: BLASTS 20 % (0-0); EOSINOPHIL 1 % (0-4); MYELOCYTE 2 % (0-0); TOTAL CELLS COUNTED 100
[2017-05-27 09:50] LABS: METAMYELOCYTE 1 % (0-0); NEUTROPHIL 31 % (50-75)
[2017-05-27] MEDS ORDERED: hydroCHLOROthiazide-Triamterene 25 mg-37.5 mg Cap UD PO SCH (10:00)
[2017-05-27] MEDS ORDERED: Metoprolol Succinate 25 mg XL Tab PO SCH (10:00)
[2017-05-27] MEDS ORDERED: Multivitamin With Minerals Tab PO SCH (10:00)
--- NOTE | 2017-05-27 10:36 | CP.PCM.CON ---
History of Present Illness - History of Present Illness History of Present Illness: Palliative consult requested by Macey HAMLIN for hospice care discussion Patient is a 82 yo male admitted from home with SOB and CP X 3 days. Patient was also lethargc and echimotic. Patient seen by Doctor Jose and was given blood transfusion as an outpatient for management of his leukemia. Upon admission to [facility] patient was diagnosed with Blast crises with anemia , WBC 223.2. Patient was found with thrombocytopenia, Plt 18 and anemia, Hb 7.1 . Per report, Doctor Jose discussed the terminal nature od disease and family was considering comfort care. PMH: AML diagnosed in January 2017, arthritis, anemia Soc. Hx: ,lives at home with son and daughter in law Fam. Hx: No known Hx of leukemia Review of Systems - Constitutional Constitutional: Lethargy - EENT Eyes: absent: As Per HPI, Blind Spots, Blurred Vision, Change in Vision, Decreased Night Vision, Diplopia, Discharge, Dry Eye, Exophthalmos, Floaters, Irritation, Itchy Eyes, Loss of Peripheral Vision, Pain, Photophobia, Requires Corrective Lenses, Sees Flashes, Spots in Vision, Tunnel Vision, Other Visual Disturbances, Loss of Vision, Other Ears: absent: As Per HPI, Decreased Hearing, Ear Discharge, Ear Pain, Tinnitus, Abnormal Hearing, Disequilibrium, Dizziness, Other Nose/Mouth/Throat: absent: As Per HPI, Epistaxis, Nasal Congestion, Nasal Discharge, Nasal Obstruction, Nasal Trauma, Nose Pain, Post Nasal Drip, Sinus Pain, Sinus Pressure, Bleeding Gums, Change in Voice, Dental Pain, Dry Mouth, Dysphagia, Halitosis, Hoarsness, Lip Swelling, Mouth Lesions, Mouth Pain, Odynophagia, Sore Throat, Throat Swelling, Tongue Swelling, Facial Pain, Neck Pain, Neck Mass, Other - Cardiovascular Cardiovascular: Dyspnea on Exertion - Respiratory Respiratory: Dyspnea on Exertion, Pain on Inspiration - Gastrointestinal Gastrointestinal: absent: As Per HPI, Abdominal Pain, Belching, Bloating, Change in Bowel Habits, Change in Stool Character, Coffee Ground Emesis, Constipation, Cramping, Diarrhea, Dyspepsia, Dysphagia, Early Satiety, Excessive Flatus, Fecal Incontinence, Heartburn, Hematemesis, Hematochezia, Loose Stools, Melena, Nausea, Odynophagia, Temesmus, Vomiting, Other - Genitourinary Genitourinary: absent: As Per HPI, Change in Urinary Stream, Difficulty Urinating, Dysuria, Flank Pain, Hematuria, Pyuria, Nocturia, Urinary Incontinence, Urinary Frequency, Urinary Hesitance, Urinary Urgency, Voiding Freq/Small Amts, Freq UTI, Hx Renal/Bladder Calculi, Hx /Renal Surgery, Bladder Distension, Other - Musculoskeletal Musculoskeletal: Muscle Weakness - Integumentary Integumentary: Unusual Bruising - Neurological Neurological: Weakness - Psychiatric Psychiatric: Anxiety - Endocrine Endocrine: Fatigue - Hematologic/Lymphatic Hematologic: Easy Bleeding Past Patient History - Past Medical History & Family History Past Medical History?: Yes - Past Social History Smoking Status: Never Smoked - CARDIAC Hx Hypercholesterolemia: Yes Hx Hypertension: Yes - PULMONARY Hx Respiratory Disorders: No - NEUROLOGICAL Hx Neurological Disorder: No - HEENT Hx HEENT Problems: No - RENAL Hx Chronic Kidney Disease: No - ENDOCRINE/METABOLIC Hx Endocrine Disorders: No - HEMATOLOGICAL/ONCOLOGICAL Hx Anemia: Yes - INTEGUMENTARY Hx Dermatological Problems: No - MUSCULOSKELETAL/RHEUMATOLOGICAL Hx Arthritis: Yes (L KNEE/L ANKLE/FOOT) - GASTROINTESTINAL Hx Gastrointestinal Disorders: No - GENITOURINARY/GYNECOLOGICAL Hx Genitourinary Disorders: No - PSYCHIATRIC Hx Substance Use: No - SURGICAL HISTORY Hx Surgeries: No Other/Comment: no further information given by family - ANESTHESIA Hx Anesthesia: No Hx Anesthesia Reactions: No Hx Malignant Hyperthermia: No Has any member of the family had a problem w/ anesthesia?: No Meds Allergies/Adverse Reactions: Allergies Allergy/AdvReac Type Severity Reaction Status Date / Time No Known Allergies Allergy Verified 05/26/17 19:52 - Medications Medications: Current Medications Ezetimibe (Zetia) 10 mg PO DAILY [facility] Last Admin: 05/27/17 10:13 Dose: 10 mg Hydroxyurea (Hydrea) 500 mg PO DAILY [facility] Last Admin: 05/27/17 10:07 Dose: 500 mg Piperacillin Sod/Tazobactam Sod (Zosyn 3.375 Gm Iv Premix) 3.375 gm in 50 mls @ 200 mls/hr IVPB Q8H [facility] Last Admin: 05/27/17 03:37 Dose: 200 mls/hr Metoprolol Succinate (Toprol Xl) 25 mg PO DAILY [facility] Last Admin: 05/27/17 10:08 Dose: Not Given Multivitamins/Minerals (Therapeutic-M Tab) 1 tab PO DAILY [facility] Last Admin: 05/27/17 10:10 Dose: 1 tab Pneumococcal Polyvalent Vaccine (Pneumovax 23 Vaccine) 0.5 ml IM .ONCE ONE Stop: 05/29/17 10:01 Tramadol HCl (Ultram) 50 mg PO Q8 PRN PRN Reason: for pain Last Admin: 05/27/17 03:26 Dose: 50 mg Triamterene/HCTZ (Dyazide 25 Mg-37.5 Mg) 1 cap PO DAILY [facility] Last Admin: 05/27/17 10:08 Dose: Not Given Physical Exam - Constitutional Appears: Chronically Ill - Head Exam Head Exam: ATRAUMATIC, NORMAL INSPECTION, NORMOCEPHALIC - Eye Exam Eye Exam: EOMI, Normal appearance, PERRL Pupil Exam: NORMAL ACCOMODATION, PERRL - ENT Exam ENT Exam: Mucous Membranes Moist, Normal Exam - Neck Exam Neck exam: Positive for: Normal Inspection - Respiratory Exam Respiratory Exam: Decreased Breath Sounds, NORMAL BREATHING PATTERN - Cardiovascular Exam Cardiovascular Exam: Tachycardia, REGULAR RHYTHM - GI/Abdominal Exam GI & Abdominal Exam: Hypoactive Bowel Sounds - Rectal Exam Rectal Exam: Deferred - Extremities Exam Extremities exam: Positive for: normal inspection - Back Exam Back exam: NORMAL INSPECTION - Neurological Exam Neurological exam: Alert - Psychiatric Exam Psychiatric exam: Flat Affect - Skin Skin Exam: Petechiae Results - Vital Signs Recent Vital Signs: Last Vital Signs Temp 98.5 F 05/27/17 07:25 Pulse 90 05/27/17 07:25 Resp 20 05/27/17 07:25 BP 90/59 L 05/27/17 07:25 Pulse Ox 97 05/27/17 07:25 - Labs Result Diagrams: 05/26/17 20:12 05/26/17 20:12 Labs: Laboratory Results - last 24 hr 05/26/17 05/26/17 05/26/17 20:03 20:12 20:12 WBC 223.2 H* RBC 2.59 L Hgb 7.1 L Hct 23.1 L MCV 89.1 MCH 27.2 MCHC 30.5 L RDW 18.8 H Plt Count 18 L* D MPV 11.1 Neut % (Auto) 57.0 Lymph % (Auto) 12.0 L [place] % (Auto) 29.0 H Eos % (Auto) 2.0 Baso % (Auto) 0.0 Neut # 127.4 H Lymph # 26.7 H [place] # 64.7 H Eos # 4.5 H Baso # 0.0 Total Counted Cancelled Neutrophils % (Manual) 31 L Band Neutrophils % 4 H Lymphocytes % (Manual) 20 Reactive Lymphs % Cancelled Monocytes % (Manual) 21 H Eosinophils % (Manual) 1 Basophils % (Manual) Cancelled Metamyelocytes % 1 H Myelocytes % 2 H Promyelocytes % Cancelled Blast Cells % 20 H Plasma Cell % (Manual) Cancelled Nucleated RBC % Cancelled Hypersegmented Polys Cancelled Smudge Cells Cancelled Toxic Granulation Cancelled Dohle Bodies Cancelled Nayana Rods Cancelled Platelet Estimate Markedly decreased L Plt Clumps, EDTA Cancelled Large Platelets Cancelled Giant Platelets Cancelled RBC Morphology Cancelled Polychromasia Cancelled Hypochromasia (manual) Slight Poikilocytosis (manual Cancelled Basophilic Stippling Cancelled Anisocytosis (manual) Slight Microcytosis (manual) Cancelled Macrocytosis (manual) Cancelled Spherocytes Cancelled Sickle Cells Cancelled Target Cells Cancelled Tear Drop Cells Slight Ovalocytes Slight Stomatocytes Cancelled Helmet Cells Cancelled [place] Bodies Cancelled [place] Cells Slight Acanthocytes (Spur) Cancelled Rouleaux Cancelled Schistocytes Cancelled PT 15.5 H INR 1.4 APTT 35 H D-Dimer, Quantitative 1162 H Sodium Potassium Chloride Carbon Dioxide Anion Gap BUN Creatinine Est GFR ( Amer) Est GFR (Non-Af Amer) Random Glucose Calcium Total Bilirubin AST ALT Alkaline Phosphatase Troponin I NT-Pro-B Natriuret Pep Total Protein Albumin Globulin Albumin/Globulin Ratio Influenza Typ A,B (EIA) Negative for flu a/b Blood Type Antibody Screen 05/26/17 05/26/17 20:12 20:36 WBC RBC Hgb Hct MCV MCH MCHC RDW Plt Count MPV Neut % (Auto) Lymph % (Auto) [place] % (Auto) Eos % (Auto) Baso % (Auto) Neut # Lymph # [place] # Eos # Baso # Total Counted Neutrophils % (Manual) Band Neutrophils % Lymphocytes % (Manual) Reactive Lymphs % Monocytes % (Manual) Eosinophils % (Manual) Basophils % (Manual) Metamyelocytes % Myelocytes % Promyelocytes % Blast Cells % Plasma Cell % (Manual) Nucleated RBC % Hypersegmented Polys Smudge Cells Toxic Granulation Dohle Bodies Nayana Rods Platelet Estimate Plt Clumps, EDTA Large Platelets Giant Platelets RBC Morphology Polychromasia Hypochromasia (manual) Poikilocytosis (manual Basophilic Stippling Anisocytosis (manual) Microcytosis (manual) Macrocytosis (manual) Spherocytes Sickle Cells Target Cells Tear Drop Cells Ovalocytes Stomatocytes Helmet Cells [place] Bodies Carmenza Cells Acanthocytes (Spur) Rouleaux Schistocytes PT INR APTT D-Dimer, Quantitative Sodium 127 L Potassium 5.1 Chloride 101 Carbon Dioxide 15 L Anion Gap 16 BUN 143 H* D Creatinine 3.5 H Est GFR ( Amer) 20 Est GFR (Non-Af Amer) 17 Random Glucose 116 H Calcium 7.3 L Total Bilirubin 1.4 H AST 73 H D ALT 79 H D Alkaline Phosphatase 153 H D Troponin I 0.4380 H* NT-Pro-B Natriuret Pep 54599 H Total Protein 5.9 L Albumin 2.9 L Globulin 3.0 Albumin/Globulin Ratio 1.0 Influenza Typ A,B (EIA) Blood Type B POSITIVE Antibody Screen Negative Assessment & Plan - Assessment and Plan (Free Text) Assessment: Palliative consult Code status DNR/DNI, advance directive on chart, PPS 20% I reviewed medical records, all diagnostic studies, examined patient in the bed and discussed goals of care with his son at bed side. Patient is alert, able to fallow simple commends, looking weak and chronically ill. There are petechiaes noted mostly to bony prominences. Family denies any active bleeding except few episodes of epistaxix while at home., afebrile. Patient complains of generalized pain. As per family, it is his main complaint. Breath sounds are diminished, HR regular , 99. BP 90/59. Patient continues on PO chemo Tx. Goals of care discussed with patient's son Mr Mosley and his over the phone. They both stated understanding the severity of condition and are considering the comfort care only. The DNR/DNI form was signed already and is on the chart. I offered more information about comfort care at home. Family agreed that it was the care they were looking for the patient. Their concern was lack of support at home since both the son and daughter in law are working. We discussed options of getting some time off from work in term of vacation or leave of absence. They would consider their options. We further agreed to meet again today between 1pm and 2 pm when the daughter in law will come in to attend discussion with hospice sales representative health insurance. This was shared with director of casework department. Impression * This is a chronically ill man in acute blast crisis due to AML * Per Doctor Jose, condition is seen critical and family made aware of * Family wishes for comfort care only * Family states concern regarding the lack of support at home for the patient but will look for options Suggestion * Family meeting pending today with Hospice sales representative health insurance for hospice evaluation * Symptoms management Thank you for consulting Palliative care
[2017-05-27 12:21] LABS: BASO # 2.2 K/uL (0.0-0.2); BASO % 1.1 % (0.0-2.0); EOS # 1.1 K/uL (0.0-0.7); EOS % 0.5 % (0.0-4.0); HEMATOCRIT 20.1 % (35.0-51.0); LYMPH # 17.8 K/uL (1.0-4.3); LYMPH % 8.7 % (20.0-40.0); MEAN CELL VOLUME 89.5 fL (80.0-94.0); MEAN CORPUSCULAR HEMOGLOBIN 27.8 pg (27.0-31.0); MEAN PLATELET VOLUME 7.7 fL (7.2-11.7); MONO # 76.7 K/uL (0.0-0.8); MONO % 37.4 % (0.0-10.0); RED CELL DISTRIBUTION WIDTH 18.5 % (11.5-14.5)
[2017-05-27] MEDS: Piperacill/Tazo 2.25gm in Dex 2.25 GM/50 ML BAG IVPB SCH ×2 (12:30→19:16)
[2017-05-27 12:48] LABS: WHITE BLOOD COUNT 204.9 K/uL (4.8-10.8)
[2017-05-27 12:49] LABS: PLATELET COUNT 13 K/uL (130-400)
[2017-05-27 13:08] LABS: BILIRUBIN,TOTAL 1.2 mg/dL (0.2-1.3); POTASSIUM 4.8 mmol/L (3.6-5.2); TOTAL PROTEIN 5.1 g/dL (6.3-8.3)
[2017-05-27 13:48] LABS: BLASTS 17 % (0-0); METAMYELOCYTE 1 % (0-0); MYELOCYTE 3 % (0-0); NEUTROPHIL 41 % (50-75); TOTAL CELLS COUNTED 100
--- NOTE | 2017-05-27 17:32 | CP.PCM.PN ---
Subjective - Date & Time of Evaluation Date of Evaluation: 05/27/17 Time of Evaluation: 17:32 Objective - Vital Signs/Intake and Output Vital Signs (last 24 hours): Temp Pulse Resp BP Pulse Ox 97.2 F L 89 18 93/54 L 99 05/27/17 15:35 05/27/17 15:35 05/27/17 15:35 05/27/17 15:35 05/27/17 15:35 - Medications Medications: Current Medications Ezetimibe (Zetia) 10 mg PO DAILY [facility] Last Admin: 05/27/17 10:13 Dose: 10 mg Hydroxyurea (Hydrea) 500 mg PO DAILY [facility] Last Admin: 05/27/17 10:07 Dose: 500 mg Piperacillin Sod/Tazobactam Sod (Zosyn 2.25 Gm Iv Premix) 2.25 gm in 50 mls @ 100 mls/hr IVPB Q8H [facility] Last Admin: 05/27/17 12:30 Dose: 100 mls/hr Metoprolol Succinate (Toprol Xl) 25 mg PO DAILY [facility] Last Admin: 05/27/17 10:08 Dose: Not Given Multivitamins/Minerals (Therapeutic-M Tab) 1 tab PO DAILY [facility] Last Admin: 05/27/17 10:10 Dose: 1 tab Pneumococcal Polyvalent Vaccine (Pneumovax 23 Vaccine) 0.5 ml IM .ONCE ONE Stop: 05/29/17 10:01 Tramadol HCl (Ultram) 50 mg PO Q8 PRN PRN Reason: for pain Last Admin: 05/27/17 14:05 Dose: 50 mg Triamterene/HCTZ (Dyazide 25 Mg-37.5 Mg) 1 cap PO DAILY [facility] Last Admin: 05/27/17 10:08 Dose: Not Given - Labs Labs: 05/27/17 12:14 05/27/17 12:14 PT 15.5 SECONDS (9.7-12.2) H 05/26/17 20:12 INR 1.4 05/26/17 20:12 APTT 35 SECONDS (21-34) H 05/26/17 20:12
--- NOTE | 2017-05-27 21:11 | CP.PCM.HP ---
History of Present Illness - History of Present Illness History of Present Illness: An 82-year-old male with PMH- anemia, arthritis, HTN, hypercholesterolemia and AML presents to the ER for C/Odyspnea. C/Odyspnea for 3 days. Insidious in onset, progressive, on exertion as well as on rest, gradually increasing in the last 3 days. C/Ochest pain for 3 days. Insidious in onset, progressive, substernal, squeezing to pinpricking type, no aggravating or relieving factors. No C/Ocough, hemoptysis, palpitation, orthopnea or PND. Chest x-ray was normal. EKG was suggestive of low voltage complexes. WBC counts were markedly raised. Platelet counts were low. BUN and creatinine were raised. Transaminases were raised. Present on Admission - Present on Admission Any Indicators Present on Admission: No Past Patient History - Past Medical History & Family History Past Medical History?: Yes - Past Social History Smoking Status: Never Smoked - CARDIAC Hx Hypercholesterolemia: Yes Hx Hypertension: Yes - PULMONARY Hx Respiratory Disorders: No - NEUROLOGICAL Hx Neurological Disorder: No - HEENT Hx HEENT Problems: No - RENAL Hx Chronic Kidney Disease: No - ENDOCRINE/METABOLIC Hx Endocrine Disorders: No - HEMATOLOGICAL/ONCOLOGICAL Hx Anemia: Yes - INTEGUMENTARY Hx Dermatological Problems: No - MUSCULOSKELETAL/RHEUMATOLOGICAL Hx Arthritis: Yes (L KNEE/L ANKLE/FOOT) - GASTROINTESTINAL Hx Gastrointestinal Disorders: No - GENITOURINARY/GYNECOLOGICAL Hx Genitourinary Disorders: No - PSYCHIATRIC Hx Substance Use: No - SURGICAL HISTORY Hx Surgeries: No Other/Comment: no further information given by family - ANESTHESIA Hx Anesthesia: No Hx Anesthesia Reactions: No Hx Malignant Hyperthermia: No Has any member of the family had a problem w/ anesthesia?: No Meds Home Medications: Home Medication List Medication Instructions Recorded Confirmed Type Lorazepam [Ativan] 0.5 mg PO Q6H PRN #20 tab 05/27/17 Rx Morphine Sulfate [Morphine] 5 mg PO Q3H PRN #15 ml 05/27/17 Rx Senna Sod [Senna Syrup] 5 ml PO BID #30 dose 05/27/17 Rx Allergies/Adverse Reactions: Allergies Allergy/AdvReac Type Severity Reaction Status Date / Time No Known Allergies Allergy Verified 05/26/17 19:52 Physical Exam - Constitutional Appears: Well - Head Exam Head Exam: ATRAUMATIC, NORMAL INSPECTION, NORMOCEPHALIC - Eye Exam Eye Exam: EOMI, Normal appearance, PERRL - ENT Exam ENT Exam: Mucous Membranes Moist, Normal Exam - Neck Exam Neck exam: Positive for: Normal Inspection - Respiratory Exam Respiratory Exam: Decreased Breath Sounds - Cardiovascular Exam Cardiovascular Exam: REGULAR RHYTHM, +S1, +S2 - GI/Abdominal Exam GI & Abdominal Exam: Diminished Bowel Sounds, Soft - Rectal Exam Rectal Exam: Deferred Results - Vital Signs Recent Vital Signs: Last Vital Signs Temp 97.2 F L 05/27/17 15:35 Pulse 89 05/27/17 17:00 Resp 18 05/27/17 15:35 BP 93/54 L 05/27/17 15:35 Pulse Ox 99 05/27/17 15:35 - Labs Result Diagrams: 05/27/17 12:14 05/27/17 12:14 Labs: Laboratory Results - last 24 hr 05/26/17 05/26/17 05/26/17 20:12 20:12 20:36 WBC RBC Hgb Hct MCV MCH MCHC RDW Plt Count MPV Neut % (Auto) 57.0 Lymph % (Auto) 12.0 L [place] % (Auto) 29.0 H Eos % (Auto) 2.0 Baso % (Auto) 0.0 Neut # 127.4 H Lymph # 26.7 H [place] # 64.7 H Eos # 4.5 H Baso # 0.0 Total Counted Cancelled Neutrophils % (Manual) 31 L Band Neutrophils % 4 H Lymphocytes % (Manual) 20 Reactive Lymphs % Cancelled Monocytes % (Manual) 21 H Eosinophils % (Manual) 1 Basophils % (Manual) Cancelled Metamyelocytes % 1 H Myelocytes % 2 H Promyelocytes % Cancelled Blast Cells % 20 H Plasma Cell % (Manual) Cancelled Nucleated RBC % Cancelled Hypersegmented Polys Cancelled Smudge Cells Cancelled Toxic Granulation Cancelled Dohle Bodies Cancelled Nayana Rods Cancelled Platelet Estimate Markedly decreased L Plt Clumps, EDTA Cancelled Large Platelets Cancelled Giant Platelets Cancelled RBC Morphology Cancelled Polychromasia Cancelled Hypochromasia (manual) Slight Poikilocytosis (manual Cancelled Basophilic Stippling Cancelled Anisocytosis (manual) Slight Microcytosis (manual) Cancelled Macrocytosis (manual) Cancelled Spherocytes Cancelled Sickle Cells Cancelled Target Cells Cancelled Tear Drop Cells Slight Ovalocytes Slight Stomatocytes Cancelled Helmet Cells Cancelled [place] Bodies Cancelled Carmenza Cells Slight Acanthocytes (Spur) Cancelled Rouleaux Cancelled Schistocytes Cancelled Sodium 127 L Potassium 5.1 Chloride 101 Carbon Dioxide 15 L Anion Gap 16 BUN 143 H* D Creatinine 3.5 H Est GFR ( Amer) 20 Est GFR (Non-Af Amer) 17 Random Glucose 116 H Calcium 7.3 L Total Bilirubin 1.4 H AST 73 H D ALT 79 H D Alkaline Phosphatase 153 H D NT-Pro-B Natriuret Pep 76602 H Total Protein 5.9 L Albumin 2.9 L Globulin 3.0 Albumin/Globulin Ratio 1.0 Blood Type B POSITIVE Antibody Screen Negative 05/27/17 05/27/17 12:14 12:14 WBC 204.9 H* RBC 2.24 L Hgb 6.2 L* Hct 20.1 L MCV 89.5 MCH 27.8 MCHC 31.0 L RDW 18.5 H Plt Count 13 L* D MPV 7.7 Neut % (Auto) 52.3 Lymph % (Auto) 8.7 L [place] % (Auto) 37.4 H Eos % (Auto) 0.5 Baso % (Auto) 1.1 Neut # 107.1 H Lymph # 17.8 H [place] # 76.7 H Eos # 1.1 H Baso # 2.2 H Total Counted Neutrophils % (Manual) 41 L Band Neutrophils % 4 H Lymphocytes % (Manual) 18 L Reactive Lymphs % Monocytes % (Manual) 16 H Eosinophils % (Manual) Basophils % (Manual) Metamyelocytes % 1 H Myelocytes % 3 H Promyelocytes % Blast Cells % 17 H Plasma Cell % (Manual) Nucleated RBC % Hypersegmented Polys Smudge Cells Toxic Granulation Dohle Bodies Nayana Rods Platelet Estimate Markedly decreased L Plt Clumps, EDTA Large Platelets Giant Platelets RBC Morphology Polychromasia Hypochromasia (manual) Slight Poikilocytosis (manual Basophilic Stippling Anisocytosis (manual) Slight Microcytosis (manual) Macrocytosis (manual) Spherocytes Sickle Cells Target Cells Tear Drop Cells Slight Ovalocytes Slight Stomatocytes Helmet Cells [place] Bodies Carmenza Cells Slight Acanthocytes (Spur) Rouleaux Schistocytes Sodium 131 L Potassium 4.8 Chloride 102 Carbon Dioxide 16 L Anion Gap 18 BUN 142 H* Creatinine 4.1 H Est GFR ( Amer) 17 Est GFR (Non-Af Amer) 14 Random Glucose 115 H Calcium 7.0 L Total Bilirubin 1.2 AST 66 H ALT 72 Alkaline Phosphatase 163 H NT-Pro-B Natriuret Pep Total Protein 5.1 L Albumin 2.5 L Globulin 2.6 Albumin/Globulin Ratio 1.0 Blood Type Antibody Screen
[2017-05-28 03:04] VITALS: RESP 20; O2SAT 98
[2017-05-28 04:34] VITALS: BP 94/56; PULSE 87; TEMP 97.2
--- NOTE | 2017-05-28 08:31 | CARD ---
APPROVED REPORT EKG Measurement Heart [id number] <Conclusion> Sinus rhythm with premature atrial complexes with aberrant conduction Low voltage QRS Septal infarct, age undetermined Abnormal ECG
[2017-05-28] MEDS ORDERED: Influenza Vaccine 60 mcg/0.5 mL SYR (4YR UP) IM ONE (10:00)
[2017-05-29] MEDS ORDERED: Pneumococcal 23-Valent Vaccine IM ONE (10:00)
== END 2017-05-28 04:25 | disposition hospice, home (50) | DRG 834 ==
LOC: C.ER 19:41 → C.9E 21:09 → C.6T 22:06
PROVIDERS: ADMIT Internal Medicine Nephrology; ATTEND Internal Medicine Nephrology
DX: C92.00 Acute myeloblastic leukemia, not having achieved remission (principal); I21.4 Non-ST elevation (NSTEMI) myocardial infarction; D69.6 Thrombocytopenia, unspecified; Z66 Do not resuscitate; I10 Essential (primary) hypertension; E78.00 Pure hypercholesterolemia, unspecified; Z51.5 Encounter for palliative care; M17.12 Unilateral primary osteoarthritis, left knee; R58 Hemorrhage, not elsewhere classified